=== PATIENT | male | born 1950 | race Caucasian/White ===

== ENCOUNTER 2017-11-08 13:45 | Emergency (ER) | payer MEDICARE, SELFPAY ==
[2017-11-08 13:48] VITALS: BP 114/73; PULSE 60; RESP 16; TEMP 36.7; O2SAT 96
--- NOTE | 2017-11-08 14:17 | W.ED.GENAD ---
Discharge Plan Discharge Details Chief Complaint: Orthopedic Primary Care Provider: Marilee Holliday ED Provider: Paolo Holliday Home Meds and New Rx's Prescriptions: No Action nitroglycerin [Nitrostat] 0.4 MG tablet, sublingual 0.4 mg Sublingual ONCE RF: 0 acetaminophen [Tylenol Extra Strength] 500 MG tablet 500 mg PO PRN PRNRF: 0 mv,Ca,oay-hpte-XT-lycopene [Centrum Men] 1 EACH tablet 1 ea PO DAILY RF: 0 losartan 25 MG tablet 25 mg PO DAILY RF: 0 omeprazole 20 MG capsule,delayed release(DR/EC) 20 mg PO DAILY RF: 0 tiotropium bromide [Spiriva with HandiHaler] 18 MCG capsule, w/inhalation device 1 puff Inhalation DAILY PRNRF: 0 Medical Decision Making MDM Narrative Medical decision making narrative: 67-year-old male with six-foot fall 1-1/2 weeks ago, landing with axial load and transfer of force to his heels. Since that time he has had persistent right heel pain. Differential diagnosis includes contusion versus underlying fracture. Given the fact that he has been amatory for 1 week, felt that he would be best served by initial CT images to rule out bony injury. Images reveal nondisplaced fracture of the medial aspect of the posterior process of the calcaneus. Patient will require immobilization and nonweightbearing with follow-up in orthopedics. I discussed the case with Dr. Juárez and we will place patient in Krishan bandage and postop shoe with crutches. HPI - General Adult General Mode of arrival: ambulatory. Date/Time Provider Initiated Documentation: 11/08/17 14:06. Limitations to Documentation: no limitations. Information obtained by: patient. History of Present Illness 67 year old M presents to the emergency department with the chief complaint of Right heel pain, described as moderate, Quality is described as aching, and is localized to the right and lower extremity. Patient reports no radiation. Patient started experiencing this day(s) and it has been constant. Rest improves symptom(s), Movement worsens symptoms . HPI Narrative: 67-year-old male who jumped off a 6 foot ladder, landing on his feet 1-1/2 weeks ago. Since that time he has had persistent right greater than left heel pain that is worse with movement and ameliorated by rest. She had no numbness or taking. Denies back pain. Did not injure himself in any other way Related Data Home Medications Medication Instructions Recorded Confirmed losartan 25 mg PO DAILY 05/25/16 11/08/17 omeprazole 20 mg PO DAILY 05/25/16 11/08/17 tiotropium bromide [Spiriva with 1 puff INHALATION DAILY PRN 05/25/16 11/08/17 HandiHaler] nitroglycerin [Nitrostat] 0.4 mg SUBLINGUAL ONCE tab-cap 09/01/16 11/08/17 acetaminophen [Tylenol Extra 500 mg PO PRN PRN 04/04/17 11/08/17 Strength] mv,Ca,ouy-dnop-RL-lycopene 1 ea PO DAILY 04/04/17 11/08/17 [Centrum Men] Allergies Allergy/AdvReac Type Severity Reaction Status Date / Time cyclobenzaprine HCl Allergy Mild Unverified 11/08/17 13:54 [From Flexeril] diltiazem AdvReac Dizziness/L Unverified 11/08/17 13:54 ightheade SURICAL TAPE Allergy Skin Rash Uncoded 11/08/17 13:54 General Stated Complaint: Orthopedic TAD: 3 Review of Systems Review of Systems Rest 6 systems reviewed and otherwise - PFSH Family History Other Skin cancer Social History Smoking/Tobacco Use Status: Never Surgical History Arthroscopy, Shoulder Biopsy, Soft Tissue (04/04/17) occular implant, left resection pre-patella bursa Exam Narrative Exam Narrative: GEN: awake, alert, oriented 3. Pleasant, well groomed, interactive. HEAD: Normocephalic, atraumatic ENT: Mucous membranes moist, oropharynx unremarkable, External ear exam unremarkable EYES: PERRL, EOMI NECK: Full ROM, no KAREN, no menigismus BACK: Nontender, no step-off or deformity CHEST/RESP: Nontender, clear to auscultation bilateral, no wheeze/rhonchi/rales CARDIOVASCULAR: RRR, no murmur, rub ai. 2+ Rad pulse bilateral ABDOMEN: Soft, nontender, no mass. +Bowel sounds EXT: Full ROM, no edema, no rash. R calcaneal tenderness to palpation. 2+ DP, sensation throughout the lower extremity is intact Neuro: Grossly normal neurologic exam, conversant, interactive. Psych: Speech fluent, thoughts congruent, affect normal Course Vital Signs Temperature 36.7 C 11/08/17 13:48 Pulse 60 11/08/17 13:48 Respiratory Rate 16 11/08/17 13:48 Blood Pressure 114/73 11/08/17 13:48 Pulse Oximetry 96 11/08/17 13:48 Temperature 36.7 C 11/08/17 13:48 Pulse 60 11/08/17 13:48 Respiratory Rate 16 11/08/17 13:48 Blood Pressure 114/73 11/08/17 13:48 Pulse Oximetry 96 11/08/17 13:48
--- NOTE | 2017-11-08 14:20 | ED.GENADUL_ITS ---
Discharge Plan Discharge Details Chief Complaint: Orthopedic Primary Care Provider: Marilee Holliday ED Provider: Paolo Holliday Home Meds and New Rx's Prescriptions: No Action nitroglycerin [Nitrostat] 0.4 MG tablet, sublingual 0.4 mg Sublingual ONCE RF: 0 acetaminophen [Tylenol Extra Strength] 500 MG tablet 500 mg PO PRN PRNRF: 0 mv,Ca,vgj-apjy-KL-lycopene [Centrum Men] 1 EACH tablet 1 ea PO DAILY RF: 0 losartan 25 MG tablet 25 mg PO DAILY RF: 0 omeprazole 20 MG capsule,delayed release(DR/EC) 20 mg PO DAILY RF: 0 tiotropium bromide [Spiriva with HandiHaler] 18 MCG capsule, w/inhalation device 1 puff Inhalation DAILY PRNRF: 0 Medical Decision Making MDM Narrative Medical decision making narrative: 67-year-old male with six-foot fall 1-1/2 weeks ago, landing with axial load and transfer of force to his heels. Since that time he has had persistent right heel pain. Differential diagnosis includes contusion versus underlying fracture. Given the fact that he has been amatory for 1 week, felt that he would be best served by initial CT images to rule out bony injury. Images reveal nondisplaced fracture of the medial aspect of the posterior process of the calcaneus. Patient will require immobilization and nonweightbearing with follow-up in orthopedics. I discussed the case with Dr. Juárez and we will place patient in Krishan bandage and postop shoe with crutches. HPI - General Adult General Mode of arrival: ambulatory . Date/Time Provider Initiated Documentation: 11/08/17 14:06 . Limitations to Documentation: no limitations . Information obtained by: patient . History of Present Illness 67 year old M presents to the emergency department with the chief complaint of Right heel pain, described as moderate, Quality is described as aching, and is localized to the right and lower extremity. Patient reports no radiation. Patient started experiencing this day(s) and it has been constant. Rest improves symptom(s), Movement worsens symptoms . HPI Narrative: 67-year-old male who jumped off a 6 foot ladder, landing on his feet 1-1/2 weeks ago. Since that time he has had persistent right greater than left heel pain that is worse with movement and ameliorated by rest. She had no numbness or taking. Denies back pain. Did not injure himself in any other way Related Data Home Medications Medication Instructions Recorded Confirmed losartan 25 mg PO DAILY 05/25/16 11/08/17 omeprazole 20 mg PO DAILY 05/25/16 11/08/17 tiotropium bromide [Spiriva with 1 puff INHALATION DAILY PRN 05/25/16 11/08/17 HandiHaler] nitroglycerin [Nitrostat] 0.4 mg SUBLINGUAL ONCE tab-cap 09/01/16 11/08/17 acetaminophen [Tylenol Extra 500 mg PO PRN PRN 04/04/17 11/08/17 Strength] mv,Ca,jbh-bftw-WX-lycopene 1 ea PO DAILY 04/04/17 11/08/17 [Centrum Men] Allergies Allergy/AdvReac Type Severity Reaction Status Date / Time cyclobenzaprine HCl Allergy Mild Unverified 11/08/17 13:54 [From Flexeril] diltiazem AdvReac Dizziness/L Unverified 11/08/17 13:54 ightheade SURICAL TAPE Allergy Skin Rash Uncoded 11/08/17 13:54 General Stated Complaint: Orthopedic TAD: 3 Review of Systems Review of Systems Rest 6 systems reviewed and otherwise - PFSH Family History Other Skin cancer Social History Smoking/Tobacco Use Status: Never Surgical History Arthroscopy, Shoulder Biopsy, Soft Tissue (04/04/17) occular implant, left resection pre-patella bursa Exam Narrative Exam Narrative: GEN: awake, alert, oriented 3. Pleasant, well groomed, interactive. HEAD: Normocephalic, atraumatic ENT: Mucous membranes moist, oropharynx unremarkable, External ear exam unremarkable EYES: PERRL, EOMI NECK: Full ROM, no KAREN, no menigismus BACK: Nontender, no step-off or deformity CHEST/RESP: Nontender, clear to auscultation bilateral, no wheeze/rhonchi/rales CARDIOVASCULAR: RRR, no murmur, rub ai. 2+ Rad pulse bilateral ABDOMEN: Soft, nontender, no mass. +Bowel sounds EXT: Full ROM, no edema, no rash. R calcaneal tenderness to palpation. 2+ DP, sensation throughout the lower extremity is intact Neuro: Grossly normal neurologic exam, conversant, interactive. Psych: Speech fluent, thoughts congruent, affect normal Course Vital Signs Temperature 36.7 C 11/08/17 13:48 Pulse 60 11/08/17 13:48 Respiratory Rate 16 11/08/17 13:48 Blood Pressure 114/73 11/08/17 13:48 Pulse Oximetry 96 11/08/17 13:48 Temperature 36.7 C 11/08/17 13:48 Pulse 60 11/08/17 13:48 Respiratory Rate 16 11/08/17 13:48 Blood Pressure 114/73 11/08/17 13:48 Pulse Oximetry 96 11/08/17 13:48
--- NOTE | 2017-11-08 15:07 | DI.CT_ITS ---
SYMPTOMS/DIAGNOSIS: RIGHT HEEL PAIN AFTER FALL FROM 6 FEET 1-1/[address] SCAN OF THE RIGHT CALCANEUS: CT scan of the right calcaneus was performed. Sagittal and coronal reformatted images were evaluated on the Siemens workstation. There is a nondisplaced, mildly comminuted fracture involving the medial and inferior aspect of the posterior process of the calcaneus. No other fracture or dislocation is seen. There is edema seen in the soft tissues of the right heel. IMPRESSION: Nondisplaced, mildly comminuted fracture involving the inferomedial aspect of the posterior process of the calcaneus.
== END 2017-11-08 16:15 | disposition home or self-care (01) ==
PROVIDERS: Emergency Provider Emergency Medicine; PCP Nurse Practitioner Family
DX: S92.014A Nondisplaced fracture of body of right calcaneus, initial encounter for closed fracture (principal); W11.XXXA Fall on and from ladder, initial encounter; J44.9 Chronic obstructive pulmonary disease, unspecified; I10 Essential (primary) hypertension
CPT/HCPCS: 28400; 73700; E0114

== ENCOUNTER → 2017-11-20 10:21 | Outpatient (BNVA) | payer MEDICARE, SELFPAY | PROVIDERS: PCP Nurse Practitioner Family; Referring Provider Nurse Practitioner Family; Visit Provider Orthopaedic Surgery | DX: S92.014A Nondisplaced fracture of body of right calcaneus, initial encounter for closed fracture (principal); W11.XXXA Fall on and from ladder, initial encounter | CPT/HCPCS: 99201; 99213; 73630; L4361 ==

== ENCOUNTER 2017-11-20 14:22 | Outpatient (CLI) | payer MEDICARE, SELFPAY ==
--- NOTE | 2017-11-20 11:05 | DI.RAD_ITS ---
SYMPTOMS/DIAGNOSIS: F/U FX RIGHT FOOT: Three views. The patient has a known fracture of the posterior process of the calcaneus. This was best appreciated on the CT scan. There appears to be normal alignment of the calcaneus. The fracture is not well visualized on this plain film. No new fractures or dislocations are present.
== END 2017-11-20 14:42 ==
PROVIDERS: PCP Nurse Practitioner Family; Referring Provider Nurse Practitioner Family; Visit Provider Orthopaedic Surgery
DX: S92.014D Nondisplaced fracture of body of right calcaneus, subsequent encounter for fracture with routine healing (principal)
CPT/HCPCS: 73630

== ENCOUNTER 2017-12-18 11:59 | Outpatient (REF) | payer MEDICARE, SELFPAY ==
[2017-12-18 21:15] LABS: ALT 22 U/L (12-78); AST 21 U/L (15-37); Albumin 3.3 g/dL (3.4-5.0); Alkaline Phosphatase 81 U/L (46-116); BUN 15 mg/dL (7-18); Bilirubin, Total 0.8 mg/dL (0.2-1.0); CREATININE 0.84 mg/dL (0.70-1.30); Chloride 105 mmol/L (98-107); Glucose 94 mg/dL (70-100); Magnesium 1.7 mg/dL (1.8-2.4); Sodium 142 mmol/L (136-145); Total Protein 6.6 g/dL (6.4-8.2)
== END 2017-12-18 12:19 ==
LOC: NCHCN 11:59
PROVIDERS: PCP Nurse Practitioner Family; Visit Provider Nurse Practitioner Family
DX: R19.7 Diarrhea, unspecified (principal); E83.42 Hypomagnesemia; J44.9 Chronic obstructive pulmonary disease, unspecified; J30.9 Allergic rhinitis, unspecified; E66.9 Obesity, unspecified; I10 Essential (primary) hypertension; N40.0 Benign prostatic hyperplasia without lower urinary tract symptoms; M54.5 Low back pain
CPT/HCPCS: 80053; 83735

== ENCOUNTER 2018-08-16 16:45 | Outpatient (REF) | payer MEDICARE, SELFPAY ==
[2018-08-16 21:34] LABS: Magnesium 1.7 mg/dL (1.8-2.4)
== END 2018-08-16 17:05 ==
LOC: NCHCN 16:45
PROVIDERS: PCP Nurse Practitioner Family; Visit Provider Nurse Practitioner Family
DX: R05 Cough (principal); R19.7 Diarrhea, unspecified; J44.9 Chronic obstructive pulmonary disease, unspecified; J30.9 Allergic rhinitis, unspecified; N40.0 Benign prostatic hyperplasia without lower urinary tract symptoms; K21.9 Gastro-esophageal reflux disease without esophagitis; E66.9 Obesity, unspecified
CPT/HCPCS: 83735

== ENCOUNTER → 2018-09-10 10:17 | Outpatient (BNVA) | payer MEDICARE, SELFPAY | PROVIDERS: PCP Nurse Practitioner Family; Referring Provider Nurse Practitioner Family; Visit Provider Orthopaedic Surgery | DX: M25.571 Pain in right ankle and joints of right foot (principal); Z87.81 Personal history of (healed) traumatic fracture; J44.9 Chronic obstructive pulmonary disease, unspecified; I10 Essential (primary) hypertension | CPT/HCPCS: 99211; 99213; 99214 ==

== ENCOUNTER → 2018-09-10 11:26 | Outpatient (BNVA) | payer MEDICARE, SELFPAY | PROVIDERS: PCP Nurse Practitioner Family; Referring Provider Nurse Practitioner Family; Visit Provider Surgery | DX: R13.10 Dysphagia, unspecified (principal); J44.9 Chronic obstructive pulmonary disease, unspecified; I10 Essential (primary) hypertension | CPT/HCPCS: 99214 ==

== ENCOUNTER 2018-09-17 16:05 | Outpatient (REF) | payer MEDICARE, SELFPAY ==
[2018-09-19 10:59] LABS: Alpha 1 Antitrypsin,Serum 142 mg/dL (90-200)
== END 2018-09-17 16:25 ==
LOC: NCHCN 16:05
PROVIDERS: PCP Nurse Practitioner Family; Visit Provider Nurse Practitioner Family
DX: J44.9 Chronic obstructive pulmonary disease, unspecified (principal)
CPT/HCPCS: 82103

== ENCOUNTER 2018-09-19 08:52 | Outpatient (CLI) | payer MEDICARE, SELFPAY ==
--- NOTE | 2018-09-19 08:59 | DI.MRI_ITS ---
SYMPTOM/DIAGNOSIS: PREVIOUS FRACTURE, PERSISTENT RT ANKLE PAIN M25.571 MRI OF THE RIGHT ANKLE: Comparison is made with CT 08 Nov 2017 and plain films of 20 Nov 2017 T1 and FS T2 axial, sagittal and coronal sequences were performed. The previously noted calcaneal tuberosity fracture has healed. The marrow signal appears normal throughout. There is a small plantar calcaneal spur. No abnormality is seen of the Achilles tendon or plantar fascia. The peroneal, flexor and extensor tendons appear intact. No osteochondral defects of the talar dome is seen. There is no ankle joint effusion. IMPRESSION: The previously noted calcaneal fracture has healed without deformity. No bone or tendon abnormalities are identified.
== END 2018-09-19 09:12 ==
PROVIDERS: PCP Nurse Practitioner Family; Visit Provider Orthopaedic Surgery
DX: M25.571 Pain in right ankle and joints of right foot (principal); Z87.81 Personal history of (healed) traumatic fracture
CPT/HCPCS: 73718

== ENCOUNTER 2018-10-01 09:41 | Day surgery (SDC) | payer MEDICARE, SELFPAY ==
[2018-10-01 10:05] VITALS: BP 143/94; PULSE 60; RESP 16; TEMP 36.3; O2SAT 98
[2018-10-01] MEDS: Lactated Ringers 1,000 ML 80 ML IV (10:28)
--- NOTE | 2018-10-01 11:53 | W.PM.DSUDISC ---
Discharge Plan Disposition Patient Disposition: HOME Condition: Good Discharge Details Attending Provider: Aixa Coon Primary Care Provider: Marilee Holliday Home Meds and New Rx's Prescriptions: Continued diltiazem HCl 120 mg capsule,extended release 24 hr 120 mg PO DAILY RF: 0 meclizine 25 mg tablet 25 mg PO QID PRNRF: 0 magnesium chloride 64 mg tablet,delayed release (DR/EC) 64 mg PO BID RF: 0 simvastatin 20 mg tablet 20 mg PO QHS RF: 0 loratadine [Claritin] 10 mg tablet 10 mg PO DAILY RF: 0 Spiriva with HandiHaler 18 mcg capsule, w/inhalation device 1 cap IH DAILY RF: 0 nitroglycerin [Nitrostat] 0.4 MG tablet, sublingual 0.4 mg Sublingual ONCE RF: 0 acetaminophen [Tylenol Extra Strength] 500 MG tablet 500 mg PO PRN PRNRF: 0 Centrum Men 1 EACH tablet 1 ea PO DAILY RF: 0 losartan 25 MG tablet 25 mg PO DAILY RF: 0 omeprazole 20 MG capsule,delayed release(DR/EC) 20 mg PO DAILY RF: 0 Spiriva with HandiHaler 18 MCG capsule, w/inhalation device 1 puff Inhalation DAILY PRNRF: 0 Discharge Instructions Instructions: Gar Esophagus (ED) Additional Instructions: Your EGD showed Barretts esophagus. My office will contact you with biopsy results. No dilation was performed. Depending on the biopsy results, EGD may be repeated in 1-3 years to monitor the Barretts change Activity:: Activity as Tolerated Diet:: As Tolerated Discharge Orders Discharge Orders: Discharge Order (Routine); Ordered 10/01/18 Ordered By: Aixa Coon DS: Diagnosis Discharge Diagnosis (1) Barretts esophagus: Start date: 10/01/18 Start time: 12:23 Status: Acute (2) History of esophagogastroduodenoscopy (EGD):
--- NOTE | 2018-10-01 12:15 | ESO_PTH ---
PATIENT: Dontae Uriarte LOC: [facility] U#:[id number] AGE/SX: 68/M ROOM: RE10/01/[address]: Aixa Coon MD : 1950 BED: DIS: 10/01/2018 SPEC #: [id number] RECD: 10/01/18 13:09 STATUS: PRASAD JOHNSON #: [id number] GLORY: 10/01/18 12:[address]: Aixa Coon DEPT: Surgical Specimen RECD BY: Kalpana Marley ENTERED: 10/01/18 13:10 SP TYPE: Eso OTHR DR: Marilee Holliday Tissues: 1 - ESOPHAGUS BIOPSY Procedures: GROSS AND MICRO LEVEL 4 Comments: [id number]
[2018-10-01 13:00] VITALS: BP 146/98; PULSE 51; RESP 16; TEMP 36.5; O2SAT 99
--- NOTE | 2018-10-01 17:21 | ENDO_ITS ---
DATE OF PROCEDURE: October 01, 2018 PREOPERATIVE DIAGNOSIS: 1. Reflux. 2. Dysphagia. POSTOPERATIVE DIAGNOSIS: Gar's esophagus. PROCEDURE: Esophagogastroduodenoscopy with biopsies. SURGEON: Aixa Coon M.D. ANESTHESIA: Monitored Anesthesia Care. INDICATIONS: This is a 68-year-old man who reports breakthrough symptoms of reflux a few times a wee k despite PPI therapy. He also occasional notes some difficulty swallowing. His last EGD was roughl y ten years ago. PROCEDURE: He was placed in the left Tidwell position. Propofol was titrated to sedation. The scope w as advanced into his esophagus under direct visualization and down into the stomach and duodenum. Th ere was no duodenitis or ulcers noted. The stomach itself was normal, including on retroflex view of the fundus and lesser curvature. The GE junction was carefully observed and showed no evidence of s tricture or acute inflammation. He had a very small hiatal hernia present. There was Gar's esop hagus present extending circumferentially from the GE junction at 38 cm up to about 34 cm. The proxi mal aspect of this was biopsied in three quadrants. The air was suctioned from the stomach and the s cope withdrawn with no other esophageal lesions found. He tolerated the procedure well and was stabl e to recovery. Pending on the biopsy results, he will need a follow-up endoscopy in 1 to 3 years. Yasmeen andujar office will contact him. cc: Marilee Holliday M.D.
== END 2018-10-01 13:25 | disposition home or self-care (01) ==
PROVIDERS: PCP Nurse Practitioner Family; Visit Provider Surgery
PROC: 0DJ68ZZ Inspection of Stomach, Via Natural or Artificial Opening Endoscopic (ICD-10-PCS; CPT 43235; principal; 2018-10-01 11:15)
DX: K22.70 Barrett's esophagus without dysplasia (principal); K21.9 Gastro-esophageal reflux disease without esophagitis; R13.10 Dysphagia, unspecified; K44.9 Diaphragmatic hernia without obstruction or gangrene
CPT/HCPCS: 43239; 88305

== ENCOUNTER 2018-12-23 13:15 | Outpatient (REF) | payer MEDICARE, SELFPAY ==
[2018-12-23 22:06] LABS: Hemoglobin A1C 5.6 % (4.5-6.2)
[2018-12-23 22:13] LABS: ALT 25 U/L (16-63); AST 21 U/L (15-37); Albumin 3.7 g/dL (3.4-5.0); Alkaline Phosphatase 78 U/L (46-116); Anion Gap 8.4 mmol/L (3-11); BUN 15 mg/dL (7-18); Bilirubin, Total 0.8 mg/dL (0.2-1.0); CO2 27.6 mmol/L (21.0-32.0); CREATININE 1.01 mg/dL (0.70-1.30); Calcium 9.3 mg/dL (8.5-10.1); Chloride 105 mmol/L (98-107); Glucose 88 mg/dL (70-100); Magnesium 1.6 mg/dL (1.8-2.4); Potassium 4.5 mmol/L (3.5-5.1); Sodium 141 mmol/L (136-145); Vitamin B12 472 pg/mL (193-986)
== END 2018-12-23 13:35 ==
LOC: NCHCN 13:15
PROVIDERS: PCP Nurse Practitioner Family; Visit Provider Nurse Practitioner Family
DX: I10 Essential (primary) hypertension (principal); N40.0 Benign prostatic hyperplasia without lower urinary tract symptoms; R20.2 Paresthesia of skin; R19.7 Diarrhea, unspecified; J30.9 Allergic rhinitis, unspecified; E66.9 Obesity, unspecified; R79.89 Other specified abnormal findings of blood chemistry; E83.42 Hypomagnesemia
CPT/HCPCS: 80053; 82607; 83036; 83735

== ENCOUNTER 2019-08-21 11:24 | Outpatient (REF) | payer MEDICARE, SELFPAY ==
[2019-08-21 21:35] LABS: ALT 23 U/L (16-63); AST 23 U/L (15-37); Albumin 3.6 g/dL (3.4-5.0); Alkaline Phosphatase 70 U/L (46-116); BUN 20 mg/dL (7-18); Bilirubin, Total 0.9 mg/dL (0.2-1.0); CREATININE 0.98 mg/dL (0.70-1.30); Calcium 8.7 mg/dL (8.5-10.1); Chloride 105 mmol/L (98-107); Glucose 91 mg/dL (74-106); Magnesium 1.7 mg/dL (1.8-2.4); Potassium 4.5 mmol/L (3.5-5.1); Sodium 138 mmol/L (136-145); Total Protein 6.8 g/dL (6.4-8.2); Vitamin B12 335 pg/mL (193-986)
== END 2019-08-21 11:44 ==
LOC: NCHCN 11:24
PROVIDERS: PCP Nurse Practitioner Family; Visit Provider Nurse Practitioner Family
DX: K21.9 Gastro-esophageal reflux disease without esophagitis (principal); J44.9 Chronic obstructive pulmonary disease, unspecified; R19.7 Diarrhea, unspecified; E78.5 Hyperlipidemia, unspecified; M19.049 Primary osteoarthritis, unspecified hand; E66.9 Obesity, unspecified
CPT/HCPCS: 80053; 82607; 83735

== ENCOUNTER → 2019-09-05 13:14 | Outpatient (BNVA) | payer MEDICARE, SELFPAY | PROVIDERS: PCP Nurse Practitioner Family; Referring Provider Nurse Practitioner Family; Visit Provider Surgery | DX: K22.70 Barrett's esophagus without dysplasia (principal); R19.7 Diarrhea, unspecified; Z86.010 Personal history of colon polyps; J44.9 Chronic obstructive pulmonary disease, unspecified; I10 Essential (primary) hypertension | CPT/HCPCS: 99212; 99213 ==

== ENCOUNTER 2019-09-19 07:40 | Outpatient (CLI) | payer MEDICARE, SELFPAY ==
[2019-09-20 23:54] LABS: COVID-19 RT-PCR Result NEGATIVE (Negative)
== END 2019-09-19 08:00 ==
PROVIDERS: PCP Nurse Practitioner Family; Visit Provider Surgery
DX: Z01.818 Encounter for other preprocedural examination (principal)
CPT/HCPCS: U0003

== ENCOUNTER 2019-09-22 08:05 | Day surgery (SDC) | payer MEDICARE, SELFPAY ==
--- NOTE | 2019-09-22 06:44 | W.PM.ENDDOP ---
Date of service: 09/22/19 Time of Service: :34 Endoscopy Report DATE OF PROCEDURE: 09/22/19 PRE-OP DIAGNOSIS: Hx of Irizarry's, Hx of polyps, and diarrhea POST-OP DIAGNOSIS: other (barett's, gastritis and duodenitis.) PROCEDURE: 1. EGD with biopsies 2. Colonoscopy SURGEON: Jaki Alicia ANESTHESIA: other (General/ ASA 2/Jocelin Mayo CRNA) ESTIMATED BLOOD LOSS: 5 PATHOLOGY: other (multiple Bx in the duodenum, stomach and esophagus) COMPLICATIONS: None DISPOSITION: same day INDICATIONS: A\\ 69 year old male diagnosed with Irizarry's esophagitis in September of 2018. repeat EGD was recommended in 1 year. he is asymptomstic P\\ EGD under sedation Risks, benefits and complications have been reviewed. Complications include but are not limited to bleeding, pain, infection, perforation, missed lesion or polyp, sore throat, aspiration and adverse reaction to medications and cardiac arrest (2) Diarrhea: A\\ 69 year old male with a history of colonic polyp in 2010. He also has developed diarrhea in the last year. Has hx of tubular adenoma in 2010 PREP: Miralax/Dulcolax PROCEDURE START TIME: :34 PROCEDURE END TIME: 10:15 COLONOSCOPY RETRACTION TIME: 15 minutes FINDINGS: Upper- Inflammation of the duodenum, stomach and esophagus. Extensive Irizarry's esophagus, numerous gastric polyps. PROCEDURE DESCRIPTION: After informed consent was obtained the patient was take to the procedure room and placed in a supine position. Monitors were applied and a time out was done. The patients name, date of , procedure type, allergies to medications and metal in their body was reviewed. A bite block was placed and the patient was sedated. Once sedated and comfortable the gastroscope was advanced through the oropharynx which was grossly normal into the esophagus. The proximal esophagus was normal. In the distal esophagus there was irizarry's noted. The scope was advanced into the stomach and through the pylorus into the 3rd portion of the duodenum. The duodenum was noted to have mild inflammation of the duodenal bulb. Biopsies were done. The scope was retracted back into the stomach. There was inflammation and numerous benign appearing polyps. Biopsies were done to rule out H. pylori. There were no ulcers. The scope was retro-flexed. The cardia and fundus were noted to have some mild inflammation as well as benign appearing polyps throughout. Random polyps were biopsied. There was a hiatal hernia noted. The scope was retracted back into the esophagus.The GE junction was at 36 cm. There was Irizarry's noted from 30 to 36 cm. Biopsies were done at 35, 34, 31 and 30 cm. While the patient was still sedated they were placed in a left decubitous position. A rectal exam was done. External exam was normal. Internal exam revealed a normal sphincter tone and no palpable masses. The prostate felt smooth. No masses were palpated. The scope was then introduced and retro-flexed. No internal hemorrhoids were identified. The scope was then advanced to the cecum without difficulty. The ileocecal and appendiceal orifice were identified. The prep was adequate. The scope was advanced into the terminal ileum which was normal. The scope was then slowly retracted over 15 minutes back into the rectum. The scope was removed and the patient was woken up and taken back to Same day surgery in stable condition. The patient tolerated the procedure well and there were no immediate complications. Follow up: I will call with results. depending on the biopsies he may need a referal to GI for the Irizarry's
--- NOTE | 2019-09-22 06:45 | W.PM.DSUDISC ---
Discharge Plan Disposition Patient Disposition: HOME Condition: Good Discharge Details Reason For Visit: Colonoscopy/EGD Attending Provider: Jaki Alicia Primary Care Provider: Marilee Holliday Home Meds and New Rx's Prescriptions: Continued meclizine 25 mg tablet 25 mg PO QID PRNRF: 0 magnesium chloride 64 mg tablet,delayed release (DR/EC) 64 mg PO BID RF: 0 simvastatin 20 mg tablet 20 mg PO QHS RF: 0 Spiriva with HandiHaler 18 mcg capsule, w/inhalation device 1 cap IH DAILY RF: 0 vitamin B complex [B Complex-Vitamin B12] Tablet 1 tab PO DAILY RF: 0 nitroglycerin [Nitrostat] 0.4 MG tablet, sublingual 0.4 mg Sublingual ONCE RF: 0 diltiazem HCl [DILT-XR] 120 mg capsule,ext.rel 24h degradable 120 mg PO DAILY RF: 0 meclizine 25 mg tablet 25 mg PO DAILY RF: 0 magnesium L-lactate [Magtab] 84 mg tablet extended release 84 mg PO BID RF: 0 docusate sodium 100 mg capsule 100 mg PO DAILY RF: 0 acetaminophen [Tylenol Extra Strength] 500 MG tablet 500 mg PO PRN PRNRF: 0 Centrum Men 1 EACH tablet 1 ea PO DAILY RF: 0 losartan 25 MG tablet 25 mg PO DAILY RF: 0 omeprazole 20 MG capsule,delayed release(DR/EC) 20 mg PO DAILY RF: 0 Discontinued bisacodyl [Dulcolax (bisacodyl)] 5 mg tablet,delayed release (DR/EC) 5 mg PO ONCE Qty: 4 RF: 0 polyethylene glycol 3350 17 gram powder in packet 255 g PO DAILY Qty: 15 RF: 0 Discharge Instructions Additional Instructions: Findings: Gar's Normal Colon Follow up: I will call with results Please call if you develop: fevers >101.5 Nausea or Vomiting Abdominal pain that is not transient DAY SURGERY UNIT POST ENDOSCOPY INSTRUCTIONS 1. Because there will be medication in your system for the next 24 hours, you may feel a little sleepy. Your coordination will be affected. Therefore: a. Do not drive or operate dangerous equipment for 24 hours. b. Do not drink alcohol beverages for 24 hours (not even beer). c. Plan to go home and rest for the day. 2. Generally there are no restrictions on your activity after a day or so has gone by, but you may feel a bit fatigued for a few days. 3 After you arrive home you may have a light meal and return to a normal diet as you can tolerate it without feeling sick to your stomach. 4. After surgery, you may feel pain or discomfort. This should be only transient, but if it persists please contact your doctor. 5. If there are any questions regarding the findings of your procedure, please feel free to contact your doctor. 6. If you are unable to contact your doctor with a problem, contact the hospital at [phone]. 7. Continue all your regular medications unless directed otherwise. I understand the above instructions and have no questions. Signature of Patient or Responsible Adult Escort Date/Time Name of Responsible Adult Escort Signature of Nurse Date/Time Activity:: Activity as Tolerated Diet:: As Tolerated Discharge Orders Discharge Orders: Discharge Order (Routine); Ordered 09/22/19 Ordered By: Jaki Alicia
[2019-09-22 08:18] VITALS: BP 147/99; PULSE 65; RESP 16; TEMP 36.3; O2SAT 96
[2019-09-22] MEDS: Lactated Ringers 1,000 ML 80 ML IV (08:52)
--- NOTE | 2019-09-22 09:37 | STOM_PTH ---
PATIENT: Dontae Uriarte LOC: [facility] U#:[id number] AGE/SX: 69/M ROOM: RE09/22/[address]: Jaki Alicia MD : 1950 BED: DIS: 09/22/2019 SPEC #: [id number] RECD: 09/22/19 12:48 STATUS: ADITHYALynn REJodi #: [id number] GLORY: 09/22/19 09:[address]: Jaki Alicia DEPT: Surgical Specimen RECD BY: Kalpana Marley ENTERED: 09/22/19 12:51 SP TYPE: STOMACH OTHR DR: Marilee Holliday Tissues: 1 - BIOPSY BOWEL 2 - STOMACH BIOPSY 3 - STOMACH BIOPSY 4 - ESOPHAGUS BIOPSY 5 - ESOPHAGUS BIOPSY 6 - ESOPHAGUS BIOPSY 7 - ESOPHAGUS BIOPSY Procedures: GROSS AND MICRO LEVEL 4 Comments: [id number]
[2019-09-22 11:03] VITALS: BP 115/70; PULSE 54; RESP 16; TEMP 36.2; O2SAT 97
== END 2019-09-22 11:20 | disposition home or self-care (01) ==
LOC: SUR 08:06
PROVIDERS: PCP Nurse Practitioner Family; Visit Provider Surgery
PROC: (CPT 43239; principal; 2019-09-22 09:30)
DX: R19.7 Diarrhea, unspecified (principal); Z86.010 Personal history of colon polyps; Z87.19 Personal history of other diseases of the digestive system; K31.7 Polyp of stomach and duodenum; K22.70 Barrett's esophagus without dysplasia; K44.9 Diaphragmatic hernia without obstruction or gangrene
CPT/HCPCS: 43239; 45378; 88305; J2704

== ENCOUNTER 2020-10-21 14:46 | Outpatient (REF) | payer MEDICARE, SELFPAY ==
[2020-10-21 14:22] LABS: ALT 40 U/L (16-63); AST 26 U/L (15-37); Albumin 3.7 g/dL (3.4-5.0); Alkaline Phosphatase 77 U/L (46-116); Anion Gap 9.6 mmol/L (3-11); BUN 19 mg/dL (7-18); Bilirubin, Total 0.9 mg/dL (0.2-1.0); CO2 27.4 mmol/L (21.0-32.0); CREATININE 1.1 mg/dL (0.70-1.30); Calcium 9.2 mg/dL (8.5-10.1); Calculated LDL 107 mg/dL (<100); Chloride 107 mmol/L (98-107); Cholesterol 173 mg/dL (<200); Glucose 96 mg/dL (74-106); HDL Cholesterol 52 mg/dL (40-60); Potassium 4.6 mmol/L (3.5-5.1); Sodium 144 mmol/L (136-145); Total Protein 7.1 g/dL (6.4-8.2); Triglyceride 70 mg/dL (<150)
[2020-10-21 21:37] LABS: PSA, Screening 2.8 ng/mL (0.0-4.5)
== END 2020-10-21 14:47 | disposition home or self-care (01) ==
LOC: NCHCN 14:46
PROVIDERS: PCP Nurse Practitioner Family; Visit Provider Family Medicine
DX: Z00.00 Encounter for general adult medical examination without abnormal findings (principal); E66.9 Obesity, unspecified; I10 Essential (primary) hypertension; E78.5 Hyperlipidemia, unspecified; F52.21 Male erectile disorder
CPT/HCPCS: 80053; 80061; 84153

== ENCOUNTER 2020-12-07 01:04 | Outpatient (CLI) | payer MEDICARE, SELFPAY ==
--- NOTE | 2020-12-07 08:15 | DI.CT_ITS ---
Exam(s) CT CHEST WO EXAM: CT CHEST WO CLINICAL HISTORY: dyspnea, some asbestos exposure, cough,R06.00. TECHNIQUE: Multi planar reconstructions were performed. CONTRAST MATERIAL: None COMPARISON: No exams were available for comparison FINDINGS: CHEST: LUNGS: There is a 4 x 4 millimeter nodule in the posterior segment of the right upper lobe (series 2/ image 26). No other focal right lung findings nor pleural effusion. There is a tiny calcified granu kole in the left lower lobe. No other significant focal findings in the left lung. No pleural effus ions. No significant focal findings in the trachea and mainstem bronchi. There is no bronchiectasis . MEDIASTINUM: There is no obvious hilar nor mediastinal adenopathy. Small calcification noted in the l eft none thyroid lobe..No obvious axillary adenopathy CARDIAC: Heart size is normal. There is no pericardial effusion.Caliber of the thoracic aorta is wit hin normal limits. VISUALIZED UPPER ABDOMEN:No adrenal masses. Gallbladder surgically absent.. Small hiatal hernia. OSSEOUS: Benign bone island noted in the T9 vertebral body. Right glenohumeral joint osteoarthritis. . IMPRESSION: 1. There is a 4 millimeter nodule in the right upper lobe. Follow-up noninfused CT scan three months recommended. 2. There is a solitary tiny benign granuloma in the left lung. 3. No pleural effusions and no intrathoracic adenopathy. RADIATION DOSE DELIVERED: 707.23mGy.cm Total DLP DATA REPOSITORY: All CT scans at this facility are submitted to the National Radiology Data Registry (NRDR) Dose Index Registry (DIR) with the [employer] ([employer]). RADIATION OPTIMIZATION: All CT scans at this facility use at least one of these dose optimization te chniques: automated exposure control; mA and/or kV adjustment per patient size (includes targeted exa ms where dose is matched to clinical indication); or iterative reconstruction.
== END 2020-12-07 01:24 ==
PROVIDERS: PCP Nurse Practitioner Family; Visit Provider Student in an Organized Health Care Education/Training Program
DX: R06.00 Dyspnea, unspecified (principal); R91.1 Solitary pulmonary nodule; J84.10 Pulmonary fibrosis, unspecified
CPT/HCPCS: 71250

== ENCOUNTER 2020-12-07 01:45 | Outpatient (CLI) | payer MEDICARE, SELFPAY ==
[2020-12-07] MEDS: Albuterol HFA 18 GM 200 PUFF INH IH (12:07)
[2020-12-07] MEDS: Methacholine 100 MG VIAL IH (12:07)
[2020-12-07] MEDS: Inhaler, Assist Device 1 EACH MC (12:07)
--- NOTE | 2020-12-07 14:02 | W.PFT ---
Date of service: 12/07/20 Time of Service: 10:01 Pulmonary Function Test Result Requesting Provider Geovanna Indications: Dyspnea on exertion Interpretation Spirometry: There is no airflow limitation at baseline. There was not a significant methacholine response (maximum of a 10% decrease in FEV1 with methacholine administration). Impression Negative methacholine challenge test Clinical Correlation therefore is recommended.
--- NOTE | 2020-12-07 14:05 | PFT_ITS ---
Date of service: 12/07/20 Time of Service: 10:01 Pulmonary Function Test Result Requesting Provider Geovanna Indications: Dyspnea on exertion Interpretation Spirometry: There is no airflow limitation. Normal flow volume loop and volume- time curve. Lung Volumes: Lung volumes are normal. Diffusion Capacity: Diffusion is normal Airway Pressure: Airways resistance is normal Impression Normal pulmonary function test Note: When compared to PFTs performed in 2016, his FEV1 and FVC have not significantly declined. His TLC remains unchanged. His diffusion has seemed to reduce since 2016. Clinical Correlation therefore is recommended.
== END 2020-12-07 01:46 | disposition home or self-care (01) ==
LOC: RT 01:45
PROVIDERS: PCP Nurse Practitioner Family; Visit Provider Family Medicine
DX: R06.09 Other forms of dyspnea (principal)
CPT/HCPCS: 94060; 94726; 94729; 95070; 94010; J7674

== ENCOUNTER → 2021-07-18 02:14 | Outpatient (CLI) | payer MEDICARE, SELFPAY ==
--- NOTE | 2021-07-18 14:24 | DI.US_ITS ---
APPROVED REPORT EXAM: Comprehensive 2D, Doppler, and color-flow Echocardiogram Patient Location: Out-Patient Etymology Teacher: Michaela Ricardo RDCS (AE) Indications: MELLO, Other Information Study Quality: Adequate Conclusion Normal left ventricular wall thickness and chamber size. Estimated ejection fraction is 60%. Wall m otion is normal Normal right ventricular size and systolic function The left atrium is mildly dilated. The right atrium is normal in size The aortic valve is mildly sclerotic. There is mild aortic regurgitation. There is no aortic stenos is Normal mitral valve with trace regurgitation Normal tricuspid valve with trace regurgitation. Estimated right ventricular systolic pressure is 19 mmHg Dilated ascending aorta measuring 4.4 cm Wall motion Left Ventricle The left ventricle is normal size. The left ventricular systolic function is normal. The left ventric ular ejection fraction is within the normal range. There is normal left ventricular wall thickness. T here is normal LV segmental wall motion. There is no ventricular septal defect visualized. LVEF is 60 %. Right Ventricle The right ventricle is normal size. The right ventricular systolic function is normal. The RVSP is 19 .3mmHg. Atria Left atrium is mildly dilated. The right atrium size is normal. The interatrial septum is intact with no evidence for an atrial septal defect. Aortic Valve The aortic valve is mildly sclerotic There is no aortic valvular stenosis. Mild aortic regurgitation. Mitral Valve The mitral valve is normal in structure. No evidence of mitral valve stenosis. Trace mitral regurgita tion. Tricuspid Valve The tricuspid valve is normal in structure. There is no tricuspid valve stenosis. Trace tricuspid reg urgitation. Pulmonic Valve The pulmonary valve is normal in structure. There is no pulmonic valvular stenosis. There is no pulmo maribell valvular regurgitation. Great Vessels The aortic root is normal in size. The ascending aorta is dilated. Aortic arch is upper normal in rolando iber. IVC is normal in size and collapses >50% with inspiration. Pericardium There is no pericardial effusion. 2D Dimensions IVSD d PLAX 0.83 cm M: 0.6-1.2 LV Vol A2C d MOD 92.8 mL LVPW d PLAX 0.86 cm M: 0.6 - 1.2 LV Vol A4C d MOD 123.7 mL LVID d PLAX 4.78 cm M: 4.2 - 5.8 LA vol/ BSA A2C s A-L 30.7 mL/m2 LVDs 3.40 cm M: 2.5 - 4.0 LA vol/ BSA A4C s A-L 30.2 mL/m2 Ao Root d 2.89 cm M: 3.1 - 3.7 LA Vol/ BSA Biplane s A-L 30.7 mL/m2 RA Area A4C 14.66 cm2 LA Area A4C s MOD 23.22 cm2 RA Vol/ BSA A4C s A-L 17.1 mL/m2 LA Area A2C s MOD 23.62 cm2 Ao Asc Diam d 4.40 cm M: 2.6 - 3.4 LV EF A4C MOD 55.5 % LV EF Teichholz 55.4 % LV EF A2C MOD 56.0 % LVEF (Bose's) 56.76 % M: 52 - 72 LV EF Biplane MOD 56.8 % LV Volume 80.60 mL M: 62 - 150 SV 63.74 mL LV Volume Index 35.19 mL/m2 M: 34 - 74 SV Index 27.76 mL/m2 LV Vol Biplane MOD 112.3 mL FS 28.85 % M-Mode TAPSE 2.59 cm (M/F) >1.7 LV Diastology MV E' medial 0.083 (>0.07 m/s) E/A Ratio 1.2 LV E/e MED 9.95 (<14) MV E Vmax 0.83 (0.4-1.3 m/s) MV E' lateral 0.098 (>0.1 m/s) MV A Vmax 0.70 (0.4-1.3 m/s) LV E/e LAT 8.45 (<14) MV E/A Ratio 1.17 MV E/E' medial 9.96 MV E/E' lateral 8.47 Aortic Valve LVOT Area 2.96 cm2 AoV Area Vmax 2.51 cm2 LVOT Vmax 1.61 m/s AoV Area/ BSA (Vmax) 1.09 cm2/m2 LVOT Mean Horacio. 0.98 m/s ANIVAL Mean Horacio. 2.27 cm2 LVOT Peak Grad 10.4 mmHg ANIVAL Mean Horacio. Index 0.99 cm2/m2 LVOT Mean Grad 4.7 mmHg AR DT 2487 msec LVOT VTI 0.339 m AR PHT 721 msec LVOT Diam s 1.90 cm AoV Vmax 1.91 m/s Velocity Ratio 0.84 AoV Mean Horacio. 1.28 m/s AoV Peak Grad 14.6 mmHg LVOT SV 100.55 mL AoV Mean Grad 7.7 mmHg AoV VTI 0.367 m AoV Area VTI 2.74 cm2 AoV Area/ BSA (VTI) 1.19 cm/m2 Mitral Valve MV DT 263 (160-240 msec) MV PHT 76 msec MV Area PHT 2.88 cm2 MV VTI 0.393 m MV Area VTI 2.56 (4.0-6.0 cm2) Pulmonary Valve PV Vmax 1.20 (0.5-1.5 m/s) RVOT Peak Gr. 3.15 mmHg PV Peak Grad 5.7 mmHg RVOT Mean Gr. 1.40 mmHg PV Mean Grad 2.7 mmHg RVOT VTI 0.209 m PV VTI 0.237 m RVOT Vmax 0.89 m/s Tricuspid Valve TR Peak Grad 16.2 mmHg TR Vmax 2.02 m/s RA Pressure 3.00 mmHg RVSP (TR) 19.3 mmHg
== END ==
PROVIDERS: PCP Nurse Practitioner Family; Visit Provider Student in an Organized Health Care Education/Training Program
DX: R06.00 Dyspnea, unspecified (principal)
CPT/HCPCS: 93306

== ENCOUNTER → 2021-08-02 00:48 | Outpatient (CLI) | payer MEDICARE, SELFPAY ==
--- NOTE | 2021-08-02 14:20 | DI.CT_ITS ---
Exam(s) CT CHEST WO EXAM: CT CHEST WO CLINICAL HISTORY: f/u RUL 4mm nodule,r91.1 TECHNIQUE: Imaging Protocol: Axial computed tomography images with coronal and sagittal reformatted images were created and reviewed CONTRAST MATERIAL: Noncontrast COMPARISON: CT CT CHEST WO from 12/07/2020 FINDINGS: Tracheobronchial tree: No bronchiectasis or mucous plugging. Mediastinum and [place]: No dominant adenopathy or fluid collection. Pulmonary parenchyma: No consolidation. No significant emphysematous or fibrotic changes. Stable 4 millimeter nodule posterior right upper lobe. No additional nodules. Calcified granuloma left lower lobe. Pleura: No effusion or pneumothorax. Heart: The heart is not dilated. Minimal coronary artery calcifications are seen. Aorta: Ascending aorta measures 4.2 cm. Descending aorta measures 2.6 cm.. Upper abdomen: Status post cholecystectomy. . Lymph nodes: Within normal limits. Bones: Mild degenerative changes in the thoracic spine. Bone island in T9. Severe degenerative umanzor ges prominent inferior spurring is noted in the right shoulder. Severe degenerative changes are also noted in the left shoulder. Soft tissues: Unremarkable. IMPRESSION: Stable 4 millimeter nodule posterior right upper lobe. If the patient is at high risk for lung cance r, recommend low-dose screening CT in 1 year. RADIATION DOSE DELIVERED: Total DLP DATA REPOSITORY: All CT scans at this facility are submitted to the National Radiology Data Registry (NRDR) Dose Index Registry (DIR) with the [employer] (A[employer]). RADIATION OPTIMIZATION: All CT scans at this facility use at least one of these dose optimization te chniques: automated exposure control; mA and/or kV adjustment per patient size (includes targeted exa ms where dose is matched to clinical indication); or iterative reconstruction.
== END ==
PROVIDERS: PCP Nurse Practitioner Family; Visit Provider Student in an Organized Health Care Education/Training Program
DX: R91.1 Solitary pulmonary nodule (principal)
CPT/HCPCS: 71250

== ENCOUNTER 2021-08-02 14:21 | Emergency (ER) | payer MEDICARE, SELFPAY ==
[2021-08-02 14:22] VITALS: BP 158/96; PULSE 64; RESP 16; TEMP 36.5; O2SAT 97
--- NOTE | 2021-08-02 14:30 | DI.RAD_ITS ---
Exam(s) XR RIBS LT W PA LAT CHEST Exam: XR RIBS LT W PA LAT CHEST CLINICAL HISTORY: L anterolateral pain after fall TECHNIQUE: 2D digital imaging was performed. PA and lateral chest. Four views left ribs. COMPARISON: No exams were available for comparison FINDINGS: MEDIASTINUM: Normal. HEART: Normal size. Aorta mildly tortuous. PULMONARY VASCULATURE: Normal. LUNGS: Clear. PLEURAL SPACE: No pleural effusion or pneumothorax. SPINE:Unremarkable for age. No compression fractures.. LEFT RIBS: No displaced rib fractures visible. OTHER FINDINGS:Old right upper rib fractures . Degenerative changes left shoulder IMPRESSION: 1. No acute pulmonary findings. 2. Unremarkable left ribs. DATA REPOSITORY: RADIATION DOSE DELIVERED:
--- NOTE | 2021-08-02 14:38 | W.ED.GENAD ---
Discharge Plan Disposition Patient Disposition: HOME Condition: Improving Discharge Details Clinical Impression: Contusion of left chest wall Primary Care Provider: Marilee Holliday ED Provider: Paolo Holliday Home Meds and New Rx's Prescriptions: Continued magnesium chloride 64 mg tablet,delayed release (DR/EC) 64 mg PO BID simvastatin 20 mg tablet 20 mg PO QHS vitamin B complex [B Complex-Vitamin B12] Tablet 1 tab PO DAILY nitroglycerin [Nitrostat] 0.4 MG tablet, sublingual 0.4 mg Sublingual ONCE Label Comments: has never used diltiazem HCl [DILT-XR] 120 mg capsule,ext.rel 24h degradable 120 mg PO DAILY acetaminophen [Tylenol Extra Strength] 500 MG tablet 500 mg PO PRN PRN Centrum Men 1 EACH tablet 1 ea PO DAILY losartan 25 MG tablet 25 mg PO DAILY omeprazole 20 MG capsule,delayed release(DR/EC) 20 mg PO DAILY Discharge Instructions Instructions: Contusion in Adults (ED) Additional Instructions: Continue conservative management at home with ice for comfort, Tylenol if needed. Return if you have abrupt onset of shortness of breath, increasing pain, or any other acute concerns Medical Decision Making 71-year-old male states he was playing with his toy poodle on Sun when he lunged forward, caught his foot and landed on his left anterior chest. He did not suffer a loss of consciousness. Did not have the wind knocked out of him, but has developed left anterolateral chest pain that is worse with pressure and movement. No shortness of breath. He arrives oxygenating 97% on room air and in no acute distress. He has demonstrable left anterolateral chest wall discomfort with palpation. Differential diagnosis includes rib contusion versus fracture. Do not find evidence of abdominal injury. Patient referred for rib/chest Xray. There is no evidence of displaced rib fracture. Old right upper rib fracture seen. No other acute pulmonary findings. Patient reassured. Continue to continue conservatively at home. He will return for any worsening. He is stable at this time. HPI General Mode of arrival: ambulatory. Date/Time Provider Initiated Documentation: 08/02/21 14:22. Limitations to Documentation: no limitations. Information obtained by: patient. History of Present Illness 71 year old M presents to the emergency department with the chief complaint of Left anterolateral chest/rib pain, described as mild, Quality is described as dull, and is localized to the chest and left. Patient reports no radiation. Patient started experiencing this day(s) and it has been intermittent. Rest improves symptom(s), Patient notes denies cough, shortness of breath and syncope. Patient did receive the following treatments prior to arrival, none Related Data Home Medications Medication Instructions Recorded Confirmed losartan 25 mg tablet 25 mg PO DAILY 05/25/16 08/02/21 omeprazole 20 mg capsule,delayed 20 mg PO DAILY 05/25/16 08/02/21 release nitroglycerin 0.4 mg sublingual 0.4 mg sublingual ONCE 09/01/16 08/02/21 tablet (Nitrostat) acetaminophen 500 mg tablet 500 mg PO PRN PRN 04/04/17 08/02/21 (Tylenol Extra Strength) multivit,Ca,min-iron 8 mg-folic 1 ea PO DAILY 04/04/17 08/02/21 acid 200 mcg-lycopene 600 mcg tablet (Centrum Men) magnesium chloride 64 mg 64 mg PO BID 08/22/18 08/02/21 (magnesium chloride) tablet,delayed release simvastatin 20 mg tablet 20 mg PO QHS 08/22/18 08/02/21 diltiazem HCl 120 mg 120 mg PO DAILY 09/02/19 08/02/21 capsule,extended release 24 hr, controlled (DILT-XR) vitamin B complex (B 1 tab PO DAILY 09/05/19 08/02/21 Complex-Vitamin B12 tablet) Allergies Allergy/AdvReac Type Severity Reaction Status Date / Time metoprolol Allergy Intermediate Pt unclear Verified 08/02/21 14:28 as to this allergy cyclobenzaprine HCl AdvReac Mild lightheaded, Verified 08/02/21 14:28 [From Flexeril] dizzy SURICAL TAPE Allergy Skin Rash Uncoded 08/02/21 14:28 General Stated Complaint: Chest/Rib TAD: 4 Review of Systems Narrative: No other injury. Denies loss of consciousness. No neck or back pain, denies abdominal pain. 8 systems were reviewed and otherwise negative [facility] All Active Problems (Updated 08/02/21 @ 15:35 by Paolo Holliday MD) Contusion of left chest wall (Acute) Pulmonary nodule (Acute) Dyspnea on exertion (Acute) Shoulder pain, right (Acute) Ankle injury (Acute ~11/08/17) Nondisplaced calcaneus fracture secondary to falling off a ladder right lower extremity Neoplasm of skin (Acute 05/28/14) Right ankle pain (Acute) Barretts esophagus (Acute) 08/2018 [facility] Hx of colonic polyps (Acute) Diarrhea (Acute) Medical History Allergic rhinitis Basal cell carcinoma BPH (benign prostatic hyperplasia) Decreased hearing of both ears bilat. hearing aids Dysphagia Erectile dysfunction GERD (gastroesophageal reflux disease) HTN (hypertension) Hyperlipidemia Hypomagnesemia Insomnia Low back pain Vertigo, peripheral Surgical History Biopsy, Soft Tissue (04/04/17) skin of neck - basal cell carcinoma, margins negative History of esophagogastroduodenoscopy (EGD) 10/01/18 occular implant, left resection pre-patella bursa S/P colonoscopy 2010- Tubular adenoma Family History Other Skin cancer Social History Smoking/Tobacco Use Status: Never Smoking risk assessment performed?: Yes Alcohol Intake: never Drug use: Never Substance use type: does not use Do you feel safe at home: Yes Do you feel safe in your relationship?: Yes Exam Narrative Exam Narrative: GEN: awake, alert, oriented 3. Pleasant, well groomed, interactive. HEAD: Normocephalic, atraumatic ENT: Mucous membranes moist, oropharynx unremarkable, External ear exam unremarkable EYES: PERRL, EOMI NECK: Full ROM, no KAREN, no menigismus CHEST/RESP: Left anterolateral chest wall tender just inferior to the nipple line, no crepitus or ecchymosis appreciated, clear to auscultation bilateral, no wheeze/rhonchi/rales CARDIOVASCULAR: RRR, no murmur, rub ai. 2+ Rad pulse bilateral ABDOMEN: Soft, nontender, no mass. +Bowel sounds EXT: Full ROM, no edema, no rash Neuro: Grossly normal neurologic exam, conversant, interactive. Psych: Speech fluent, thoughts congruent, affect normal Course Vital Signs Vital signs: Vital Signs Temperature 36.5 C 08/02/21 14:22 Pulse 64 08/02/21 14:22 Respiratory Rate 16 08/02/21 14:22 Blood Pressure 158/96 H 08/02/21 14:22 Pulse Oximetry 97 08/02/21 14:22 Temperature 36.5 C 08/02/21 14:22 Temperature Source Temporal Artery Scan 08/02/21 14:22 Pulse 64 08/02/21 14:22 Respiratory Rate 16 08/02/21 14:22 Respiratory Effort 08/02/21 14:30 Respiratory Depth Normal 08/02/21 14:30 Respiratory Pattern Normal 08/02/21 14:30 Blood Pressure 158/96 H 08/02/21 14:22 Blood Pressure Position Sitting 08/02/21 14:22 Pulse Oximetry 97 08/02/21 14:22 Oxygen Delivery Method Room Air 08/02/21 14:22 Oxygen Flow Rate 0 08/02/21 14:22 Pain Level 5 08/02/21 14:30
== END 2021-08-02 15:46 | disposition home or self-care (01) ==
PROVIDERS: Emergency Provider Emergency Medicine; PCP Nurse Practitioner Family
DX: S20.212A Contusion of left front wall of thorax, initial encounter (principal); W18.39XA Other fall on same level, initial encounter
CPT/HCPCS: 71250; 99283; 71046; 71100

== ENCOUNTER 2021-08-11 18:04 | Outpatient (REF) | payer MEDICARE, SELFPAY ==
[2021-08-11 15:42] LABS: ALT 8 U/L (16-63); AST 17 U/L (15-37); Albumin 3.6 g/dL (3.4-5.0); Alkaline Phosphatase 90 U/L (46-116); Anion Gap 8.5 mmol/L (3-11); BUN 15 mg/dL (7-18); Bilirubin, Total 1.1 mg/dL (0.2-1.0); CO2 26.5 mmol/L (21.0-32.0); CREATININE 1.2 mg/dL (0.70-1.30); Calcium 9.1 mg/dL (8.5-10.1); Chloride 106 mmol/L (98-107); Estimated GFR 59.86 (mL/min/1.73m2); Glucose 88 mg/dL (74-106); Magnesium 1.8 mg/dL (1.8-2.4); Potassium 4.5 mmol/L (3.5-5.1); Sodium 141 mmol/L (136-145); Vitamin B12 624 pg/mL (193-986)
[2021-08-11 22:21] LABS: PSA, Screening 2.7 ng/mL (<=6.5)
== END 2021-08-11 18:05 | disposition home or self-care (01) ==
LOC: NCHCN 18:04
PROVIDERS: PCP Nurse Practitioner Family; Visit Provider Nurse Practitioner Family
DX: N40.0 Benign prostatic hyperplasia without lower urinary tract symptoms (principal); K21.9 Gastro-esophageal reflux disease without esophagitis; E78.5 Hyperlipidemia, unspecified; R06.09 Other forms of dyspnea; J98.4 Other disorders of lung; J30.9 Allergic rhinitis, unspecified; Z86.010 Personal history of colon polyps; Z12.5 Encounter for screening for malignant neoplasm of prostate
CPT/HCPCS: 80053; 84153; 82607; 83735

== ENCOUNTER 2022-07-18 19:17 | Outpatient (REF) | payer MEDICARE, SELFPAY ==
[2022-07-20 08:59] LABS: PSA, Screening 2.6 ng/mL (<=6.5)
== END 2022-07-18 19:18 | disposition home or self-care (01) ==
LOC: NCHCN 19:17
PROVIDERS: PCP Nurse Practitioner Family; Visit Provider Nurse Practitioner Family
DX: N40.0 Benign prostatic hyperplasia without lower urinary tract symptoms; Z12.5 Encounter for screening for malignant neoplasm of prostate
CPT/HCPCS: 80048; 84153; 82607; 83735

== ENCOUNTER 2022-07-20 09:44 | Outpatient (REF) | payer MEDICARE, SELFPAY ==
[2022-07-20 15:06] LABS: BUN 15 mg/dL (7-18); Calcium 9.5 mg/dL (8.5-10.1); Chloride 105 mmol/L (98-107); Estimated GFR 80.47 (mL/min/1.73m2); Glucose 98 mg/dL (74-106); Magnesium 1.9 mg/dL (1.8-2.4); Potassium 5.1 mmol/L (3.5-5.1); Sodium 142 mmol/L (136-145); Vitamin B12 569 pg/mL (193-986)
[2022-07-21 20:29] LABS: PSA, Screening 2.8 ng/mL (<=6.5)
== END 2022-07-20 09:45 | disposition home or self-care (01) ==
LOC: NCHCN 09:44
PROVIDERS: PCP Nurse Practitioner Family; Visit Provider Nurse Practitioner Family
DX: E78.5 Hyperlipidemia, unspecified (principal); E83.42 Hypomagnesemia; I10 Essential (primary) hypertension; N40.0 Benign prostatic hyperplasia without lower urinary tract symptoms; E66.9 Obesity, unspecified; Z12.5 Encounter for screening for malignant neoplasm of prostate; R20.2 Paresthesia of skin
CPT/HCPCS: 80048; 84153; 82607; 83735

== ENCOUNTER → 2022-07-31 10:29 | Outpatient (BNVA) | payer MEDICARE, SELFPAY | PROVIDERS: PCP Nurse Practitioner Family; Referring Provider Nurse Practitioner Family; Visit Provider Surgery | DX: K22.70 Barrett's esophagus without dysplasia (principal); I71.21 Aneurysm of the ascending aorta, without rupture; R06.09 Other forms of dyspnea | CPT/HCPCS: 99213 ==

== ENCOUNTER 2022-08-02 03:00 | Outpatient (CLI) | payer MEDICARE, SELFPAY ==
--- NOTE | 2022-08-02 08:45 | DI.US_ITS ---
APPROVED REPORT EXAM: Comprehensive 2D, Doppler, and color-flow Echocardiogram Patient Location: Out-Patient Other Information Study Quality: Adequate Conclusion Normal left ventricular wall thickness and chamber size. Ejection fraction is 55%. Wall motion is n ormal Normal right ventricular size and systolic function Left atrium is mildly dilated. Right atrial size is normal There is no structural or hemodynamically significant valvular disease Dilated ascending aorta measuring 4.26 cm Wall motion Left Ventricle The left ventricle is normal size. The left ventricular systolic function is normal. The left ventric ular ejection fraction is within the normal range. There is normal left ventricular wall thickness. T here is normal LV segmental wall motion. There is no ventricular septal defect visualized. LVEF is 55 %. Right Ventricle The right ventricle is normal size. Right ventricular systolic function is grossly normal. The RVSP i s 21.7 mmHg. Atria Left atrium is mildly dilated. The right atrium size is normal. The interatrial septum is intact with no evidence for an atrial septal defect. Aortic Valve The aortic valve is normal in structure. Aortic valve is trileaflet. No hemodynamically significant v alvular aortic stenosis. Trace aortic regurgitation. Mitral Valve The mitral valve is normal in structure. No evidence of mitral valve stenosis. Trace to mild mitral regurgitation. Tricuspid Valve The tricuspid valve is normal in structure. There is no tricuspid valve stenosis. Trace tricuspid reg urgitation. Pulmonic Valve The pulmonary valve is normal in structure. There is no pulmonic valvular stenosis. Trace pulmonic re gurgitation. Great Vessels The aortic root is normal in size. The ascending aorta is moderately dilated. IVC is normal in size a nd collapses >50% with inspiration. Pericardium There is no pericardial effusion. 2D Dimensions IVSD d PLAX 0.64 cm M: 0.6-1.2 LV Vol A2C d MOD 115.2 mL LVPW d PLAX 0.70 cm M: 0.6 - 1.2 LV Vol A4C d MOD 140.2 mL LVID d PLAX 4.53 cm M: 4.2 - 5.8 LA vol/ BSA A4C s A-L 41.7 mL/m2 Ao Root d 2.79 cm M: 3.1 - 3.7 LA Area A4C s MOD 27.90 cm2 RA Area A4C 15.23 cm2 LV EF A4C MOD 56.4 % RA Vol/ BSA A4C s A-L 16.4 mL/m2 LV EF A2C MOD 55.0 % Ao Asc Diam d 4.24 cm M: 2.6 - 3.4 LV EF Biplane MOD 57.4 % LVEF (Bose's) 57.38 % M: 52 - 72 SV 74.73 mL LV Volume 93.64 mL M: 62 - 150 SV Index 32.73 mL/m2 LV Volume Index 40.89 mL/m2 M: 34 - 74 LV Vol Biplane MOD 130.2 mL M-Mode TAPSE 2.70 cm (M/F) >1.7 LV Diastology MV E' medial 0.185 (>0.07 m/s) E/A Ratio 0.9 LV E/e MED 4.20 (<14) MV E Vmax 0.78 (0.4-1.3 m/s) MV E' lateral 0.127 (>0.1 m/s) MV A Vmax 0.90 (0.4-1.3 m/s) LV E/e LAT 6.15 (<14) MV E/A Ratio 0.84 MV E/E' medial 4.24 MV E/E' lateral 6.15 Aortic Valve LVOT Area 3.31 cm2 AoV Area Vmax 2.65 cm2 LVOT Vmax 1.74 m/s AoV Area/ BSA (Vmax) 1.16 cm2/m2 LVOT Mean Horacio. 1.08 m/s ANIVAL Mean Horacio. 2.47 cm2 LVOT Peak Grad 12.1 mmHg ANIVAL Mean Horacio. Index 1.08 cm2/m2 LVOT Mean Grad 5.4 mmHg AR DT 2059 msec LVOT VTI 0.384 m AR PHT 597 msec LVOT Diam s 2.05 cm AoV Vmax 2.18 m/s Velocity Ratio 0.80 AoV Mean Horacio. 1.44 m/s AoV Peak Grad 18.9 mmHg LVOT SV 127.26 mL AoV Mean Grad 9.5 mmHg AoV VTI 0.401 m AoV Area VTI 3.18 cm2 AoV Area/ BSA (VTI) 1.39 cm/m2 Mitral Valve MV DT 170 (160-240 msec) MV PHT 49 msec MV Area PHT 4.47 cm2 MV VTI 0.300 m MV Area VTI 4.24 (4.0-6.0 cm2) Pulmonary Valve PV Vmax 1.01 (0.5-1.5 m/s) RVOT Peak Gr. 1.72 mmHg PV Peak Grad 4.1 mmHg RVOT Mean Gr. 0.95 mmHg PV Mean Grad 2.3 mmHg RVOT VTI 0.160 m PV VTI 0.212 m RVOT Vmax 0.66 m/s Tricuspid Valve TR Peak Grad 18.7 mmHg TR Vmax 2.16 m/s RA Pressure 3.00 mmHg RVSP (TR) 21.7 mmHg
== END 2022-08-02 03:20 ==
LOC: DI 03:01
PROVIDERS: PCP Nurse Practitioner Family; Visit Provider Surgery
DX: I71.21 Aneurysm of the ascending aorta, without rupture (principal); R06.00 Dyspnea, unspecified
CPT/HCPCS: 93306

== ENCOUNTER 2022-08-09 08:18 | Day surgery (SDC) | payer MEDICARE, SELFPAY ==
[2022-08-09 08:26] VITALS: BP 125/75; PULSE 55; RESP 16; TEMP 36.7; O2SAT 96
--- NOTE | 2022-08-09 09:00 | RT.EKG_ITS ---
APPROVED REPORT Exam: Resting ECG Reason for Exam: irregular heart beat Patient Location: O HR:57 bpm ECG Measurements Heart Rate 57 AXIS ME 163 P 10 QRSd 114 QRS 26 QT 429 T 63 QTc 404 Conclusion Sinus bradycardia...rate< 60 Atrial premature complexes...SV complexes w/ short R-R intvls
--- NOTE | 2022-08-09 09:30 | ANES.PREOP_ITS ---
General Info Date of Service Date Performed: 08/09/22 Height: 6 ft 1 in Weight: 103.9 kg Body Mass Index (BMI): 30.2 Surgical Procedure: Operation Date: 08/09/22 09:05 Proposed Procedure Side Surgeon p Gastroscopy Jaki Alicia MD Actual Procedure Side Surgeon p Gastroscopy Not Applicable Jaki Alicia MD Meds Allergies and Home Medications Allergies Allergy/AdvReac Type Severity Reaction Status Date / Time metoprolol Allergy Intermediate Pt unclear Verified 08/09/22 08:51 as to this allergy cyclobenzaprine HCl AdvReac Mild lightheaded, Verified 08/09/22 08:51 [From Flexeril] dizzy SURICAL TAPE Allergy Skin Rash Uncoded 08/09/22 08:51 Home Medication Medication Instructions Recorded omeprazole 20 mg capsule,delayed 20 mg PO DAILY 05/25/16 release acetaminophen 500 mg tablet 500 mg PO PRN PRN 04/04/17 (Tylenol Extra Strength) multivit,Ca,min-iron 8 mg-folic 1 ea PO DAILY 04/04/17 acid 200 mcg-lycopene 600 mcg tablet (Centrum Men) magnesium chloride 64 mg 64 mg PO BID 08/22/18 (magnesium chloride) tablet,delayed release simvastatin 20 mg tablet 20 mg PO QHS 08/22/18 diltiazem HCl 120 mg 120 mg PO DAILY 09/02/19 capsule,extended release 24 hr, controlled (DILT-XR) loratadine 10 mg tablet 10 mg PO DAILY 11/29/21 cyanocobalamin (vitamin B-12) 1,000 mcg PO DAILY 07/13/22 1,000 mcg capsule losartan 100 mg tablet 100 mg PO DAILY 07/13/22 meclizine 25 mg tablet 25 mg PO PRN PRN 07/13/22 psyllium husk 3.4 gram/5.4 gram 1 tbsp PO DAILY 07/13/22 oral powder (Metamucil) Current Visit Medications: Current Medications Generic Name Dose Route Start Last Admin Trade Name Freq PRN Reason Stop Dose Admin Ringer's Solution 1,000 mls @ 80 mls/hr 08/09/22 06:00 IV 09/07/22 23:59 INFUSION RAUL IV Miscellaneous Supplies 1 each 08/09/22 06:00 Iv Access IV 09/07/22 23:59 DIRECTED RAUL Sodium Chloride 0 ml 08/09/22 06:00 Normal Saline Flush 10 Ml Syr IV 09/07/22 23:59 PRN PRN Sodium Chloride 0 ml 08/09/22 06:00 Normal Saline 10 Ml Vial IJ 09/07/22 23:59 DIRECTED PRN Sterile Water 0 ml 08/09/22 06:00 Water,Injection,Sterile 10 Ml Vial IJ 09/07/22 23:59 DIRECTED PRN PFSH Active Problems Active Problems: Problem Status Onset Code Ankle injury ~11/08/17 S99.919A Neoplasm of skin 05/28/14 D49.2 Diarrhea R19.7 Right ankle pain M25.571 Barretts esophagus K22.70 Hx of colonic polyps Z86.010 Shoulder pain, right M25.511 Dyspnea on exertion R06.00 Pulmonary nodule R91.1 Ascending aortic aneurysm I71.21 Medical History Medical History Allergic rhinitis Basal cell carcinoma BPH (benign prostatic hyperplasia) Decreased hearing of both ears bilat. hearing aids Dysphagia Erectile dysfunction GERD (gastroesophageal reflux disease) HTN (hypertension) Hyperlipidemia Hypomagnesemia Insomnia Low back pain Vertigo, peripheral Surgical History Surgical History Biopsy, Soft Tissue (04/04/17) skin of neck - basal cell carcinoma, margins negative History of esophagogastroduodenoscopy (EGD) 10/01/18 History of total shoulder replacement Right occular implant, left resection pre-patella bursa S/P colonoscopy 2010- Tubular adenoma Tobacco Smoking/Tobacco Use Status: Never Alcohol Alcohol Intake: never Substance Use Substance use: Never Substance use type: does not use Vital Signs and Lab Results Vital Signs Most Recent Vital Signs in EMR: Most Recent Vital Signs Temp Pulse Resp BP Pulse Ox 36.7 C 55 L 16 125/75 96 08/09/22 08:26 08/09/22 08:26 08/09/22 08:26 08/09/22 08:26 08/09/22 08:26 Lab Results Blood Type / Crossmatch: No Data to Display Complete Blood Count: No Data to Display Complete Metabolic Panel: Sodium 142 mmol/L (136-145) 07/20/22 08:20 Potassium 5.1 mmol/L (3.5-5.1) 07/20/22 08:20 Chloride 105 mmol/L (98-107) 07/20/22 08:20 Carbon Dioxide 31.0 mmol/L (21.0-32.0) 07/20/22 08:20 BUN 15 mg/dL (7-18) 07/20/22 08:20 Creatinine 1.0 mg/dL (0.70-1.30) 07/20/22 08:20 Est GFR (CKD-EPI 2020) 80.47 (mL/min/1.73m2) 07/20/22 08:20 Magnesium 1.9 mg/dL (1.8-2.4) 07/20/22 08:20 Calcium 9.5 mg/dL (8.5-10.1) 07/20/22 08:20 Glucose 98 mg/dL (74-106) 07/20/22 08:20 Liver Function Panel: No Data to Display Coagulation Panel: No Data to Display Cardiac Panel: No Data to Display Arterial Blood Gas: No Data to Display Venous Blood Gas: No Data to Display Pancreas Panel: No Data to Display Thyroid Panel: No Data to Display Infectious Disease: No Data to Display Blood Cultures: No Data to Display Toxicology Panel: No Data to Display Imaging and Studies Imaging and Studies Study information below may be from another EMR and interpreted by another provider. Please see original notes in EMR for more complete details. Echocardiogram Summary: 08/02/2022: Conclusion Normal left ventricular wall thickness and chamber size. Ejection fraction is 55%. Wall motion is normal Normal right ventricular size and systolic function Left atrium is mildly dilated. Right atrial size is normal There is no structural or hemodynamically significant valvular disease Dilated ascending aorta measuring 4.26 cm Pulmonary Function Summary: 12/07/2020: Pulmonary Function Test Result Requesting Provider Duchene Indications: Dyspnea on exertion Interpretation Spirometry: There is no airflow limitation. Normal flow volume loop and volume- time curve. Lung Volumes: Lung volumes are normal. Diffusion Capacity: Diffusion is normal Airway Pressure: Airways resistance is normal Impression Normal pulmonary function test Note: When compared to PFTs performed in 2016, his FEV1 and FVC have not significantly declined. His TLC remains unchanged. His diffusion has seemed to reduce since 2016. Clinical Correlation therefore is recommended. Anesthesia Assessment and Plan Anesthesia History Personal History: No History of Anesthesia Complications Family History: No Family History of Anesthesia Complications Exercise Tolerance Exercise Tolerance: Metabolic Equivalents<4 Pertinent Negatives Pertinent Negatives: No Major Cardiovascular Symptoms or Complaints and No Hist ory of CVA/TIA Cardiac & Pulmonary Exam Cardiac Exam: Normal S1/S2 Heart Sounds Pulmonary Exam: Clear Bilateral Breath Sounds Implantable Cardiac Device Does patient have a Pacemaker or an ICD?: No Airway Exam Known Difficult Airway: No Mallampati Class: 2 Mouth Opening: Normal (> 3cm) Thyromental Distance: Greater than 3 cm Neck Range of Motion: Full ROM Neck Circumference: Normal Teeth Condition: Normal Dentition ASA Classification ASA Score: ASA 3 Emergency Case?: No NPO Status NPO Status: NPO Clears >2 hours, Solids >8 hours Anesthesia Plan Resuscitation Status: Full Code Anesthesia Technique: General Anesthesia Airway Planned: Natural Airway Monitors Used: Standard Monitors
[2022-08-09 09:47] VITALS: BMI 30.2
[2022-08-09] MEDS: Lactated Ringers 1,000 ML 80 ML IV (09:50)
--- NOTE | 2022-08-09 09:53 | PGE_ITS ---
Date of Service Date of service: 08/09/22 Time of Service: 09:59 Assessment and Plan Assessment and plan (1) Barretts esophagus: Status: Acute Assessment and plan: Dontae is here today to undergo an upper endoscopy for history of Gar's. EKG was reviewed with anesthesia who agrees with bradycardia and PVCs. No reason to postpone his surgery at this time. He is otherwise doing well and has had no new symptoms. He does not have any palpitations or chest pain. We reviewed the risks, benefits and complications again of the procedure. The patient does not have any questions and has a good understanding of the procedure and its complication potential. He wishes to proceed with the procedure. Proceed with EGD and biopsies. Qualifiers: Gar's esophagus type: without dysplasia Qualified Code(s): K22.70 - Gar's esophagus without dysplasia Subjective Subjective Interval history since last seen: Mr Uriarte is here today in same-day surgery to have an upper endoscopy. He is doing well. He is not having any new symptoms. His nurse did let me know that she felt his heart rate was irregular this morning. We did do an EKG which showed some bradycardia and PVCs. There was no A-fib or any anything too worrisome. Also noted by the nurse today was that there is a mention of A-fib on the reconcilement clerk note. This is not mentioned in the cardiology notes or his primary care physician's notes. Patient does not know of a diagnosis of A-fib and its not on his problem list. They request that I sent a message to the reconcilement clerk to have her remove this from her list. Otherwise patient is doing well. Exam Const General: comfortable and no acute distress Orientation: alert and oriented x3 HENMT Head: normocephalic and atraumatic Resp Effort & Inspection: normal respiratory effort GI Inspection: normal to inspection Palpation: soft and nontender Objective Last Vital Signs Temp 98.1 F 08/09/22 08:26 Pulse 55 L 08/09/22 08:26 Resp 16 08/09/22 08:26 BP 125/75 08/09/22 08:26 Pulse Ox 96 08/09/22 08:26 Time Spent with Patient Time Spent with Patient: <25 minutes Time was spent: preparing to see the patient(eg.review tests) and counseling the patient
--- NOTE | 2022-08-09 10:08 | STOM_PTH ---
PATIENT: Dontae Uriarte LOC: [facility] U#:[id number] AGE/SX: 72/M ROOM: RE08/09/[address]: Jaki Alicia MD : 1950 BED: DIS: 08/09/2022 SPEC #: [id number] RECD: 08/09/22 11:10 STATUS: [facility] #: [id number] GLORY: 08/09/22 10:[address]: Jaki Alicia DEPT: Surgical Specimen RECD BY: Kalpana Marley ENTERED: 08/09/22 11:13 SP TYPE: STOMACH OTHR DR: Marilee Holliday Tissues: 1 - STOMACH BIOPSY 2 - STOMACH BIOPSY 3 - ESOPHAGUS BIOPSY 4 - ESOPHAGUS BIOPSY 5 - ESOPHAGUS BIOPSY 6 - ESOPHAGUS BIOPSY Procedures: GROSS AND MICRO LEVEL 4 Comments: [id number]
[2022-08-09 10:30] VITALS: BP 105/66; PULSE 58; RESP 16; TEMP 36.2; O2SAT 94
--- NOTE | 2022-08-09 10:30 | ENDO_ITS ---
Date of service: 08/09/22 Time of Service: 10:30 Endoscopy Report DATE OF PROCEDURE: 08/09/22 PRE-OP DIAGNOSIS: Hx of Gar's, increased GERD POST-OP DIAGNOSIS: same PROCEDURE: EGD with biopsies SURGEON: Jaki Alicia ANESTHESIA TYPE: General:No Airway ESTIMATED BLOOD LOSS: 2 PATHOLOGY: other (Bx of antrum, gastric polyps, GE junction and esophagus) COMPLICATIONS: None DISPOSITION: same day INDICATIONS: Mr. Uriarte is a pleasant 72-year-old gentleman whom I saw in the office for some increase in his GERD symptoms but also history of Gar's. He takes omeprazole 20 mg daily for his reflux. I saw him in same-day surgery prior to the procedure and we reviewed the risks, benefits and complications of the procedure. He did not have any new symptoms or upper respiratory symptoms. He wished to proceed with the procedure. FINDINGS: On inspection of the stomach there was some mild inflammation in the antrum. He also had numerous benign-appearing fundic gland polyps. He had a small hiatal hernia and there was Gar's present from the GE junction at 38 cm up to about 34 cm. No ulcerations were identified. PROCEDURE DESCRIPTION: After informed consent was obtained the patient was take to the procedure room and placed in a supine position. Monitors were applied and a time out was done. The patients name, date of , procedure type, allergies to medications and metal in their body was reviewed. A bite block was placed and the patient was sedated. Once sedated and comfortable the gastroscope was advanced through the oropharynx which was grossly normal into the esophagus. The proximal and mid- esophagus were normal. In the distal esophagus there was evidence of Gar's from the GE junction at 38 cm to 34 cm. The scope was advanced into the stomach and through the pylorus into the 3rd portion of the duodenum. The duodenum was noted to be normal. The scope was retracted back into the stomach. There was mild inflammation noted in the antrum. There were numerous benign appearing funsic polyps in the body and cardia of the stomach. Biopsies were done in the antrum to rule out H. pylori. There were no ulcers. A few polyps were also removed for pathology. The scope was retroflexed. The cardia and fundus were noted to be normal, except for the benign appearing polyps. There was a small hiatal hernia noted. The scope was retracted back into the esophagus and biopsies were done of the GE junction. The GE junction was at 38 cm. There was evidence of Gar's from 38 cm to 34 cm. Biopsies were done at 35, 34 and 33 cm. The scope was removed and the patient was woken up and taken back to [facility] in stable condition. Follow up: 2 weeks in the office. I will increase his omeprazole to 40 mg daily for now and make more recommendations once I have the pathology results.
--- NOTE | 2022-08-09 10:41 | W.PM.DSUDISC ---
Date of service: 08/09/22 Time of Service: 10:41 Discharge Plan Disposition Patient Disposition: Home Condition: Stable Discharge Details Reason For Visit: Snow's, GERD, Hiatal Hernia Attending Provider: Jaki Alicia Primary Care Provider: Marilee Holliday Home Meds and New Rx's Prescriptions: New omeprazole 40 mg capsule,delayed release(DR/EC) 40 mg PO DAILY Qty: 30 0RF Continued magnesium chloride 64 mg tablet,delayed release (DR/EC) 64 mg PO BID simvastatin 20 mg tablet 20 mg PO QHS loratadine 10 mg tablet 10 mg PO DAILY diltiazem HCl [DILT-XR] 120 mg capsule,ext.rel 24h degradable 120 mg PO DAILY losartan 100 mg tablet 100 mg PO DAILY Metamucil 3.4 gram/5.4 gram powder 1 tbsp PO DAILY Rx Instructions: mix into at least 8 oz of water or juice before administering meclizine 25 mg tablet 25 mg PO PRN PRN cyanocobalamin (vitamin B-12) 1,000 mcg capsule 1,000 mcg PO DAILY acetaminophen [Tylenol Extra Strength] 500 MG tablet 500 mg PO PRN PRN Centrum Men 1 EACH tablet 1 ea PO DAILY Discontinued omeprazole 20 MG capsule,delayed release(DR/EC) 20 mg PO DAILY Discharge Instructions Instructions: Hiatal Hernia (DC), Diet for Stomach Ulcers and Gastritis (ED), GERD (Gastroesophageal Reflux Disease) (DC), Snow Esophagus (DC) Additional Instructions: Findings: There was evidence of continued Snow's at the lower esophagus. You have a small hiatal hernia. There is also some mild inflammation noted in the stomach. Biopsies were done. I will review these with you when you come into the office in about 2 weeks. Medications: I would like you to stop the omeprazole 20 mg daily and start omeprazole 40 mg daily. A new prescription has been sent into your pharmacy. Diet: Would like you to follow a low acid diet again for the next couple of weeks until you see me in the office and are able to review your pathology results. Lifestyle changes: Weight loss is recommended. It does make a difference. Do not eat within 2 hours of going to bed Eat small and regular meals If there are any concerns on your pathology results I will call you prior to your visit. Please call if you develop: fevers >101.5 Nausea or Vomiting Abdominal pain that is not transient Rectal bleeding that is more then a tbsp A hard abdomen and inability to pass gas Shortness of breath DAY SURGERY UNIT POST ENDOSCOPY INSTRUCTIONS Instructions for everyone who is given Anesthesia: For your safety, please do the following for the next 24 Hours: a. Do not drive or operate dangerous equipment b. Do not drink alcohol beverages or use any recreational drugs for the first 24 hours or while taking pain medications. The medications in your body may have a reaction that can be dangerous. c. Do not make any important decisions or sign any important papers 1. Generally there are no restrictions on your activity after a day or so has gone by, but you may feel a bit fatigued for a few days. 2. After you arrive home you may have a light meal and return to a normal diet as you can tolerate it without feeling sick to your stomach. 3. After surgery, you may feel pain or discomfort. This should be only transient, but if it persists please contact your doctor. 4. If there are any questions regarding the findings of your procedure, please feel free to contact your doctor. 6. If you are unable to contact your doctor with a problem, contact the hospital at [phone]. 7. Continue all your regular medications unless directed otherwise. I understand the above instructions and have no questions. Signature of Patient or Responsible Adult Escort Date/Time Name of Responsible Adult Escort Signature of Nurse Date/Time Referrals: Jaki Alicia MD [ [facility] STAFF PHYSICIAN] - 08/22/22 9:30 am Activity:: Activity as Tolerated Diet:: low acid Discharge Orders Discharge Orders: Discharge Order (Routine); Ordered 08/09/22 Ordered By: Jaki Alicia DS: Diagnosis Discharge Diagnosis (1) Barretts esophagus: Status: Acute Asessment and Plan: Patient is seen and examined after their endoscopy. Patient has minimal sore throat. They have been able to tolerate liquids. They do not have any Nausea or Vomiting. They are not having any chest pain or shortness of breath. They have been able to pass gas and are not having any abdominal pain or distention. they have not vomited any blood. The vital signs have been stable-see nursing notes. We discussed findings on their endoscopy We reviewed the importance of lifestyle modifications- see diet recommendations We reviewed any new medications that the patient may be prescribed- see medicine reconciliation. Patient will either be sent a letter with the biopsy results or follow up in the office- see discharge instructions Patient was given explicit instructions for emergency follow up post endoscopy- see discharge instructions Patient verbalized understanding and was discharged in stable and satisfactory condition. See nursing notes. (2) GERD (gastroesophageal reflux disease): (3) Hiatal hernia: Status: Chronic
[2022-08-09 11:05] VITALS: BP 115/87; PULSE 54; RESP 15; TEMP 36.4; O2SAT 96
--- NOTE | 2022-08-09 11:58 | W.ANESPOSTOP ---
Postoperative Evaluation Date, Time and Location Date Performed: 08/09/22 Time Performed: 11:27 Patient Location: Day Surgery Unit Vital Signs Most Recent Imported Vital Signs: Most Recent Vital Signs Temp Pulse Resp BP Pulse Ox 36.2 C L 58 L 16 105/66 94 08/09/22 10:30 08/09/22 10:30 08/09/22 10:30 08/09/22 10:30 08/09/22 10:30 Pain Score Most Recent Pain Score: Most Recent Pain Score Pain Level 0 08/09/22 10:30 Assessment Mental Status: Awake (Alert & Oriented to Patient Baseline) Airway and Respiratory Function: Patent airway with normal (patient baseline) respiratory exam Cardiovascular Function: Hemodynamically Stable Hydration Status: Adequately Hydrated Nausea & Vomiting: No Nausea or Vomiting Pain: Pt. Denies Any Pain Peripheral Nerve Block: Patient did not receive a nerve block
== END 2022-08-09 11:30 | disposition home or self-care (01) ==
PROVIDERS: PCP Nurse Practitioner Family; Visit Provider Surgery
PROC: 0DJ68ZZ Inspection of Stomach, Via Natural or Artificial Opening Endoscopic (ICD-10-PCS; CPT 43235; principal; 2022-08-09 09:00)
DX: K22.70 Barrett's esophagus without dysplasia (principal); K31.7 Polyp of stomach and duodenum; K21.9 Gastro-esophageal reflux disease without esophagitis; K44.9 Diaphragmatic hernia without obstruction or gangrene
CPT/HCPCS: 43239; 88305; 93005; 93010; J2704

== ENCOUNTER → 2022-08-22 09:16 | Outpatient (BNVA) | payer MEDICARE, SELFPAY | PROVIDERS: PCP Nurse Practitioner Family; Referring Provider Nurse Practitioner Family; Visit Provider Surgery | DX: K22.70 Barrett's esophagus without dysplasia (principal) | CPT/HCPCS: 99212; 99213 ==

== ENCOUNTER 2022-09-15 12:20 | Outpatient (CLI) | payer MEDICARE, SELFPAY ==
--- NOTE | 2022-09-15 12:45 | RT.EKG_ITS ---
APPROVED REPORT Exam: Resting ECG Reason for Exam: NPW, BASEWLINE NEEDED Patient Location: O HR:52 bpm ECG Measurements Heart Rate 52 AXIS AL 152 P -1 QRSd 108 QRS 22 QT 418 T 63 QTc 389 Conclusion Sinus rhythm...normal P axis, V-rate 50- 99 Atrial premature complexes...SV complexes w/ short R-R intvls RSR' in V1 or V2,
== END 2022-09-15 12:21 | disposition home or self-care (01) ==
LOC: DI.CARD 12:56
PROVIDERS: PCP Nurse Practitioner Family; Referring Provider Nurse Practitioner Family; Visit Provider Internal Medicine Cardiovascular Disease
DX: Z13.6 Encounter for screening for cardiovascular disorders
CPT/HCPCS: 93010; 99203

== ENCOUNTER → 2022-09-15 12:20 | Outpatient (BNVA) | payer MEDICARE, SELFPAY | PROVIDERS: PCP Nurse Practitioner Family; Referring Provider Nurse Practitioner Family; Visit Provider Internal Medicine Cardiovascular Disease | DX: I10 Essential (primary) hypertension (principal); I49.1 Atrial premature depolarization | CPT/HCPCS: 93005; 99213 ==

== ENCOUNTER 2023-08-16 07:57 | Outpatient (RCR) | payer MEDICARE, SELFPAY ==
--- NOTE | 2023-08-16 08:15 | HOLTER_ITS ---
APPROVED REPORT Conclusion This is a 48-hour Holter monitor Predominant rhythm was sinus with an average heart rate of 63. Minimum was 50, maximum 98 There were occasional ventricular ectopic beats There were moderately frequent atrial premature beats There was no atrial fibrillation, no high-grade AV block, no pauses greater than 3 seconds No symptoms were reported
== END 2023-08-26 23:59 | disposition home or self-care (01) ==
LOC: CARDOPNVT 07:57
PROVIDERS: PCP Nurse Practitioner Family; Visit Provider Nurse Practitioner Family
DX: I10 Essential (primary) hypertension (principal); I49.8 Other specified cardiac arrhythmias
CPT/HCPCS: 93225

== ENCOUNTER → 2023-08-28 02:12 | Outpatient (CLI) | payer MEDICARE, SELFPAY ==
--- NOTE | 2023-08-28 06:30 | DI.US_ITS ---
APPROVED REPORT EXAM: Comprehensive 2D, Doppler, and color-flow Echocardiogram Patient Location: Out-Patient Jig Maker: Michaela Ricardo RDCS (AE) Indications: Dilated ascending aorta, aortic valve sclerosis, dyspnea on exertion, HTN Other Information Study Quality: Adequate Conclusion Normal left ventricular wall thickness and chamber size. Ejection fraction is 65%. Wall motion is n ormal Normal right ventricular size and function Mildly dilated left atrium Trileaflet aortic valve with mild regurgitation Normal mitral valve with mild regurgitation Ascending aorta measures 4.31 cm Estimated right ventricular systolic pressure is 23 mmHg Wall motion Left Ventricle The left ventricle is normal size. The left ventricular systolic function is normal. The left ventric ular ejection fraction is within the normal range. There is normal left ventricular wall thickness. T here is normal LV segmental wall motion. There is no ventricular septal defect visualized. LVEF is 65 %. Right Ventricle The right ventricle is normal size. The right ventricular systolic function is normal. Atria Left atrium is mildly dilated. Right atrium is borderline dilated. The interatrial septum is intact w ith no evidence for an atrial septal defect. Aortic Valve The aortic valve is normal in structure. Aortic valve is trileaflet. There is no aortic valvular sten osis. Mild aortic regurgitation. Mitral Valve The mitral valve is normal in structure. No evidence of mitral valve stenosis. Mild mitral regurgitat ion. Tricuspid Valve The tricuspid valve is normal in structure. There is no tricuspid valve stenosis. Trace tricuspid reg urgitation. The RVSP is 23.2 mmHg. Pulmonic Valve The pulmonary valve is normal in structure. There is no pulmonic valvular stenosis. Trace pulmonic re gurgitation. Great Vessels The aortic root is normal in size. The ascending aorta is moderately dilated. Aortic arch is normal i n caliber. IVC is normal in size and collapses >50% with inspiration. Pericardium There is no pericardial effusion. 2D Dimensions IVSD d PLAX 1.00 cm M: 0.6-1.2 Ao Root d 3.11 cm M: 3.1 - 3.7 LVPW d PLAX 1.01 cm M: 0.6 - 1.2 Ao Asc Diam d 4.31 cm M: 2.6 - 3.4 LVID d PLAX 4.78 cm M: 4.2 - 5.8 LVDs 3.28 cm M: 2.5 - 4.0 LV EF Teichholz 59.1 % FS 31.35 % LV EDV (Teich) 106.3 mL LV ESV (Teich) 43.5 mL M-Mode TAPSE 2.90 cm (M/F) >1.7 Auto EF LV EDV A4C 122.0 mL LV EDV A2C 135.3 mL LV EDV BP 131.7 mL LV ESV A4C 52.7 mL LV ESV A2C 57.9 mL LV ESV BP 55.0 mL LVEF(%) A4C 56.8 % LVEF(%) A2C 57.2 % LVEF(%) BP 58.2 % LV SV A4C 69.3 ml LV SV A2C 77.4 ml LV SV BP 76.6 ml LV CO A4C 3.2 L/min LV CO A2C 3.8 L/min LV CO BP 3.5 L/min HR A4C 45.51 BPM HR A2C 49.73 BPM LV EDV Index (BP) LA Volume LA Length A4C 6.8 cm LA Length A2C 6.1 cm LA Area A4C s 24.39 cm2 LA Area A2C s 25.61 cm2 LA Vol A4C A-L 74.72 mL LA Vol A2C A-L 91.50 mL LA Vol Biplane A-L 87.2 mL LA Vol/BSA A4C A-L LA Vol/BSA A2C A-L LA Vol/BSA BP A-L 38.6 mL/m2 LA Vol A4C MOD 70.1 mL LA Vol A2C MOD 84.7 mL LA Vol BP MOD 80.9 mL RA Volume RA Area A4C 17.4 cm2 RA ESV A4C (A-L) 56.3mL RA Vol/BSA A4C A-L RA Length A4C 4.5 cm RA ESV A4C (MOD) 53.5mL LV Diastology MV E' medial 0.080 (>0.07 m/s) MV E Vmax 0.85 (0.4-1.3 m/s) MV E/E' MED 10.52 (<14) MV A Vmax 0.85 (0.4-1.3 m/s) MV E' lateral 0.087 (>0.1 m/s) E/A Ratio 1.0 MV E/E' LAT 9.66 (<14) MV E' Average 0.084 m/s MV E/E'(average) 10.08 Aortic Valve AoV Vmax 1.94 m/s LVOT Vmax 1.28 m/s AoV Peak Grad 40.6 mmHg LVOT Peak Grad 6.6 mmHg AoV Area (Vmax) 1.86 cm2 LVOT VTI 0.297 m AoV VTI 0.446 m LVOT Mean Grad 4.0 mmHg AoV Mean Horacio. 1.29 m/s LVOT SV 83.92 mL AoV Mean Grad 7.7 mmHg LVOT Diam s 1.85 cm AoV Area (VTI) 1.88 cm2 AV Regurg Peak Gr. 66.10 mmHg Velocity Ratio 0.66 AR Decel Waldo 1.5m/sec2 AR DT 2786 msec AR PHT 808 msec AR Vmax 4.07 m/s Mitral Valve MV DT 227 (160-240 msec) Pulmonary Valve PV Vmax 0.90 (0.5-1.5 m/s) RVOT Vmax 0.59 m/s PV Peak Grad 3.2 mmHg RVOT Peak Gr. 1.4 mmHg PV Mean Horacio 0.65 m/s RVOT VTI 0.170 m PV Mean Grad 1.9 mmHg RVOT Mean Gr. 0.9 mmHg Tricuspid Valve RA Pressure 3.00 mmHg TR Vmax 2.25 m/s TV S' 0.15 m/s TR Peak Grad 20.1 mmHg RVSP (TR) 23.2 mmHg
== END ==
PROVIDERS: PCP Nurse Practitioner Family; Visit Provider Internal Medicine Cardiovascular Disease
DX: R06.00 Dyspnea, unspecified (principal); I71.21 Aneurysm of the ascending aorta, without rupture
CPT/HCPCS: 93306

== ENCOUNTER 2023-08-28 13:10 | Outpatient (REF) | payer MEDICARE, SELFPAY ==
[2023-08-28 15:42] LABS: Abs Immature Grans 0.01 10^3/uL (0.0-0.06); Absolute Basophil Count 0.03 10^3/uL (0.0-0.2); Absolute Eosinophil Count 0.08 10^3/uL (0.0-0.7); Absolute Monocyte Count 0.52 10^3/uL (0.1-0.8); Absolute Neutrophil Count 3.14 10^3/uL (1.2-6.7); Basophils % 0.6 %; Eosinophils % 1.5 %; HCT 41.8 % (40.0-50.0); HGB 13.8 g/dL (13.5-17.5); Immature Grans % 0.2 %; Lymphocytes % 28.4 %; MCH 30.7 pg (27.0-33.0); MCV 93 fL (80-95); MPV 11.1 fL (8.0-11.0); Monocytes % 9.8 %; Neutrophils % 59.5 %; Platelet Count 231 10^3/uL (130-400); RBC 4.49 10^6/uL (4.36-5.78); RDW 12.7 % (11.8-14.1); RDW-SD 43.2 fL; WBC 5.28 10^3/uL (4.4-10.8)
[2023-08-28 16:13] LABS: ALT 31 U/L (16-63); AST 33 U/L (15-37); Albumin 3.7 g/dL (3.4-5.0); Alkaline Phosphatase 77 U/L (46-116); Anion Gap 7.7 mmol/L (3-11); BUN 20 mg/dL (7-18); Bilirubin, Total 1.03 mg/dL (0.2-1.0); CO2 29.3 mmol/L (21.0-32.0); CREATININE 1.1 mg/dL (0.70-1.30); Calcium 9.4 mg/dL (8.5-10.1); Calculated LDL 89 mg/dL (<100); Chloride 107 mmol/L (98-107); Cholesterol 162 mg/dL (<200); Estimated GFR 71.32 (mL/min/1.73m2); Glucose 95 mg/dL (74-106); HDL Cholesterol 60 mg/dL (40-60); Magnesium 1.8 mg/dL (1.8-2.4); Potassium 4.7 mmol/L (3.5-5.1); Sodium 144 mmol/L (136-145); TSH (W/Ref FT4) 3.24 uIU/mL (0.36-3.74); Total Protein 7.2 g/dL (6.4-8.2); Triglyceride 65 mg/dL (<150); Vitamin B12 550 pg/mL (193-986)
== END 2023-08-28 13:11 | disposition home or self-care (01) ==
LOC: NCHCN 13:10
PROVIDERS: PCP Nurse Practitioner Family; Visit Provider Nurse Practitioner Family
DX: I10 Essential (primary) hypertension (principal); E78.5 Hyperlipidemia, unspecified; E83.42 Hypomagnesemia; Z79.899 Other long term (current) drug therapy
CPT/HCPCS: 80053; 80061; 82607; 83735; 84443; 85025

== ENCOUNTER → 2023-09-21 13:13 | Outpatient (BNVA) | payer MEDICARE, SELFPAY | PROVIDERS: PCP Nurse Practitioner Family; Referring Provider Nurse Practitioner Family; Visit Provider Internal Medicine Cardiovascular Disease | DX: I49.1 Atrial premature depolarization (principal); I71.21 Aneurysm of the ascending aorta, without rupture | CPT/HCPCS: 99213 ==

== ENCOUNTER 2023-10-12 00:31 | Outpatient (CLI) | payer MEDICARE, SELFPAY ==
--- NOTE | 2023-10-12 09:35 | DI.RAD_ITS ---
Exam(s) XR FOOT LT COMPLETE XR HEEL LT OS CALCIS EXAM: XR FOOT LT COMPLETE and XR heel LT os calcis CLINICAL HISTORY: Pain in lt foot, M79.672. TECHNIQUE: 2D digital imaging was performed of the left heel and foot. Five images were obtained. AP, oblique and lateral views were obtained. COMPARISON: CR XR HEEL LT OS CALCIS from 10/12/2023 FINDINGS: BONES: No acute fracture is present. No bony destructive lesion is seen. There is a small enthesophyt e at the posterior calcaneus. There is a small plantar calcaneal spur. JOINTS: No dislocation present. There is mild joint space narrowing of the 1st MTP joint. The joint spaces are otherwise well maintained. SOFT TISSUE: Normal. IMPRESSION: 1. Calcaneal spurs. 2. Mild degenerative changes of the 1st MTP joint. DATA REPOSITORY: RADIATION DOSE DELIVERED:
== END 2023-10-12 00:51 ==
LOC: DI 00:31
PROVIDERS: PCP Nurse Practitioner Family; Visit Provider Nurse Practitioner Family
DX: M19.072 Primary osteoarthritis, left ankle and foot (principal)
CPT/HCPCS: 73630; 73650

== ENCOUNTER 2024-08-01 15:25 | Outpatient (REF) | payer MEDICARE, SELFPAY ==
[2024-08-01 22:42] LABS: ALT 21 U/L (16-63); AST 32 U/L (15-37); Albumin 3.7 g/dL (3.4-5.0); Alkaline Phosphatase 87 U/L (46-116); Anion Gap 6.5 mmol/L (3-11); BUN 17 mg/dL (7-18); CO2 30.5 mmol/L (21.0-32.0); CREATININE 1.1 mg/dL (0.70-1.30); Calcium 9.3 mg/dL (8.5-10.1); Chloride 101 mmol/L (98-107); Estimated GFR 70.88 (mL/min/1.73m2); Glucose 89 mg/dL (74-106); Potassium 4.6 mmol/L (3.5-5.1); Sodium 138 mmol/L (136-145); Total Protein 7.4 g/dL (6.4-8.2); Vitamin B12 562 pg/mL (193-986)
== END 2024-08-01 15:26 | disposition home or self-care (01) ==
LOC: NCHCN 15:25
PROVIDERS: PCP Nurse Practitioner Family; Visit Provider Nurse Practitioner Family
DX: N40.1 Benign prostatic hyperplasia with lower urinary tract symptoms (principal); I10 Essential (primary) hypertension; K21.9 Gastro-esophageal reflux disease without esophagitis
CPT/HCPCS: 80053; 82607; 84154

== ENCOUNTER 2024-09-09 03:10 | Outpatient (CLI) | payer MEDICARE, SELFPAY ==
--- NOTE | 2024-09-09 07:00 | DI.US_ITS ---
APPROVED REPORT EXAM: Comprehensive 2D, Doppler, and color-flow Echocardiogram Patient Location: Out-Patient Laminator Hand: Michaela Ricardo RDCS (AE) Other Information Study Quality: Adequate Conclusion Normal left ventricular wall thickness and chamber size. Ejection fraction is 60 to 65%. Wall motion is normal Normal right ventricular size and function Both atria are normal in size There are no structural valvular abnormalities Mild aortic regurgitation Trace to mild mitral regurgitation Estimated right ventricular systolic pressure is 30 mmHg Ascending aorta measures 4.16 cm Wall motion Left Ventricle The left ventricle is normal size. The left ventricular systolic function is normal. The left ventricular ejection fraction is within the normal range. There is normal left ventricular wall thickness. There is normal LV segmental wall motion. There is no ventricular septal defect visualized. LVEF is 60-65%. Right Ventricle The right ventricle is normal size. The right ventricular systolic function is normal. Atria The left atrium size is normal. The right atrium size is normal. The interatrial septum is intact with no evidence for an atrial septal defect. Aortic Valve The aortic valve is normal in structure. Aortic valve is trileaflet. No hemodynamically significant valvular aortic stenosis. Mild aortic regurgitation. Mitral Valve The mitral valve is normal in structure. No evidence of mitral valve stenosis. Trace to mild mitral regurgitation. Tricuspid Valve The tricuspid valve is normal in structure. There is no tricuspid valve stenosis. Trace tricuspid regurgitation. The RVSP is 30.2 mmHg. Pulmonic Valve The pulmonary valve is normal in structure. There is no pulmonic valvular stenosis. Trace pulmonic regurgitation. Great Vessels The aortic root is normal in size. The ascending aorta is moderately dilated. Aortic arch is normal in caliber. IVC is normal in size and collapses >50% with inspiration. Pericardium There is no pericardial effusion. 2D Dimensions IVSD d PLAX 1.00 cm M: 0.6-1.2 Ao Root d 2.78 cm M: 3.1 - 3.7 LVPW d PLAX 1.03 cm M: 0.6 - 1.2 Ao Asc Diam d 4.16 cm M: 2.6 - 3.4 LVID d PLAX 4.70 cm M: 4.2 - 5.8 LVDs 3.22 cm M: 2.5 - 4.0 LV EF Teichholz 58.8 % FS 31.10 % LV EDV (Teich) 100.7 mL LV ESV (Teich) 41.4 mL M-Mode TAPSE 2.61 cm (M/F) >1.7 Auto EF LV EDV A4C 131.1 mL LV EDV A2C 122.9 mL LV EDV BP 128.8 mL LV ESV A4C 48.7 mL LV ESV A2C 45.5 mL LV ESV BP 46.9 mL LVEF(%) A4C 62.9 % LVEF(%) A2C 63.0 % LVEF(%) BP 63.6 % LV SV A4C 82.4 ml LV SV A2C 77.5 ml LV SV BP 81.9 ml LV CO A4C 4.0 L/min LV CO A2C 4.0 L/min LV CO BP 4.0 L/min HR A4C 48.78 BPM HR A2C 51.43 BPM LV EDV Index (BP) LA Volume LA Length A4C 6.2 cm LA Length A2C 6.4 cm LA Area A4C s 20.92 cm2 LA Area A2C s 28.00 cm2 LA Vol A4C A-L 60.22 mL LA Vol A2C A-L 104.73 mL LA Vol Biplane A- L 80.6 mL LA Vol/BSA A4C A-L LA Vol/BSA A2C A-L LA Vol/BSA BP A-L 35.2 mL/m2 LA Vol A4C MOD 55.8 mL LA Vol A2C MOD 98.9 mL LA Vol BP MOD 74.9 mL RA Volume RA Area A4C 15.4 cm2 RA ESV A4C (A-L) 45.5mL RA Vol/BSA A4C A-L RA Length A4C 4.4 cm RA ESV A4C (MOD) 43.9mL LV Diastology MV E' medial 0.063 (>0.07 m/s) MV E Vmax 0.99 (0.4-1.3 m/s) MV E/E' MED 15.67 (<14) MV A Vmax 0.85 (0.4-1.3 m/s) MV E' lateral 0.084 (>0.1 m/s) E/A Ratio 1.2 MV E/E' LAT 11.81 (<14) MV E' Average 0.073 m/s MV E/E'(average) 13.47 Aortic Valve AoV Vmax 2.51 m/s LVOT Vmax 1.37 m/s AoV Peak Grad 44.3 mmHg LVOT Peak Grad 7.5 mmHg AoV Area (Vmax) 1.65 cm2 LVOT VTI 0.330 m AoV VTI 0.541 m LVOT Mean Grad 4.3 mmHg AoV Mean Horacio. 1.63 m/s LVOT SV 100.14 mL AoV Mean Grad 12.6 mmHg LVOT Diam s 1.95 cm AoV Area (VTI) 1.85 cm2 Velocity Ratio 0.55 AR Decel [place] 1.4m/sec2 AR DT 2748 msec AR PHT 797 msec AR Vmax 3.98 m/s Mitral Valve MV DT 237 (160-240 msec) MV Vmax TIPS 0.90 m/s MV Mean Grad 1.0 (<2mmHg) MV VTI 0.366 m Pulmonary Valve PV Vmax 1.09 (0.5-1.5 m/s) RVOT Vmax 0.92 m/s PV Peak Grad 4.7 mmHg RVOT Peak Gr. 3.4 mmHg PV Mean Horacio 0.76 m/s RVOT VTI 0.228 m PV Mean Grad 2.6 mmHg RVOT Mean Gr. 2.1 mmHg Tricuspid Valve RA Pressure 3.00 mmHg TR Vmax 2.60 m/s TV S' 0.18 m/s TR Peak Grad 27.1 mmHg RVSP (TR) 30.2 mmHg
== END 2024-09-09 03:30 ==
PROVIDERS: PCP Nurse Practitioner Family; Visit Provider Internal Medicine Cardiovascular Disease
DX: I71.21 Aneurysm of the ascending aorta, without rupture (principal); I35.0 Nonrheumatic aortic (valve) stenosis
CPT/HCPCS: 93306

== ENCOUNTER 2024-10-03 10:30 | Outpatient (CLI) | payer MEDICARE, SELFPAY ==
--- NOTE | 2024-10-03 10:30 | RT.EKG_ITS ---
APPROVED REPORT Exam: Resting ECG Reason for Exam: follow up Patient Location: O HR:80 bpm ECG Measurements Heart Rate 80 AXIS IN 177 P 39 QRSd 106 QRS 30 QT 380 T 70 QTc 439 Conclusion Sinus rhythm...normal P axis, V-rate 50- 99 Atrial premature beats Otherwise normal
== END 2024-10-03 10:31 | disposition home or self-care (01) ==
LOC: DI.CARD 10:39
PROVIDERS: PCP Nurse Practitioner Family; Referring Provider Nurse Practitioner Family; Visit Provider Internal Medicine Cardiovascular Disease
DX: I49.1 Atrial premature depolarization (principal); I49.9 Cardiac arrhythmia, unspecified
CPT/HCPCS: 93010

== ENCOUNTER → 2024-10-03 10:30 | Outpatient (BNVA) | payer MEDICARE, SELFPAY | PROVIDERS: PCP Nurse Practitioner Family; Referring Provider Nurse Practitioner Family; Visit Provider Internal Medicine Cardiovascular Disease | DX: I49.1 Atrial premature depolarization (principal); I71.21 Aneurysm of the ascending aorta, without rupture | CPT/HCPCS: 99214; 93005 ==